=== PATIENT | female | born 1990 | race Caucasian/White ===

== ENCOUNTER 2020-08-17 12:30 | Emergency (ER) | payer OTHER, SELFPAY ==
--- NOTE | ~2020-08-17 | CT_ITS ---
EXAMINATION: CT LUMBAR SPINE WITHOUT CONTRAST CLINICAL INFORMATION: Severe lumbosacral spine pain with left leg numbness. Evaluate for disc disease. COMPARISON: None TECHNIQUE: Contiguous axial CT images of the lumbar spine were obtained without contrast. Sagittal and coronal reformats were provided and reviewed. This CT examination was performed using dose optimization techniques as appropriate, variously including the following: *Automated exposure control *Adjustment of mA and/or kV according to patient size (this includes techniques or standardized protocols for targeted exams where dose is matched to indication/reason for exam; i.e. extremities or head) *Use of iterative reconstruction technique DLP; 393 mGy-cm. FINDINGS: Normal vertebral body alignment. The lumbar lordosis is maintained. No acute fracture or subluxation. No loss of vertebral body height. Minimal loss of intervertebral disc height with tiny endplate osteophytes at L5-S1. No lytic or blastic osseous lesion. No abnormal soft tissue mass or fluid collection. The visualized paraspinal soft tissues are unremarkable. Spinal levels: Evaluation of disc bulges and stenosis is somewhat limited on CT examination. T12-L1: No significant disc bulge. No central canal or neural foraminal stenosis. L1-L2: No significant disc bulge. No central canal or neural foraminal stenosis. L2-L3: No significant disc bulge. No central canal or neural foraminal stenosis. L3-L4: No significant disc bulge. No central canal or neural foraminal stenosis. L4-L5: Mild broad-based disc bulge, slightly asymmetric to the left with thickening of the ligamentum flavum causing mild central canal as well as mild bilateral neural foraminal stenosis. L5-S1: Broad-based disc bulge with a superimposed left paracentral disc protrusion, which measures up to 1.6 cm in ML dimension and likely contacts the traversing left S1 nerve root within the lateral recess. Mild right and [id number] left neural foraminal stenosis. CT/CT lumbar spine wo con IMPRESSION: 1. Minimal degenerative disc disease at L5-S1 with a broad-based disc bulge and superimposed left paracentral disc protrusion, which likely contacts the traversing left S1 nerve root within the lateral recess. Mild right and [id number] left neural foraminal stenosis. 2. L4-L5 mild broad-based disc bulge, slightly asymmetric to the left with thickening of ligamentum flavum causing mild central canal as well as mild bilateral neural foraminal stenosis.
[2020-08-17 13:35] VITALS: BP 112/53; PULSE 74; RESP 14; TEMP 36.7; O2SAT 99; BMI 26.6
--- NOTE | 2020-08-17 14:04 | ED.GENADULT ---
HPI - General Adult General Chief complaint: Back Pain/Injury Stated complaint: back pain Time Seen by Provider: 08/17/20 13:38 Source: patient Mode of arrival: ambulatory Limitations: no limitations History of Present Illness HPI narrative: 30-year-old female who presents emergency department for evaluation of severe lower back pain x3 days. The patient states that she has a history of chronic back pain and has constant pain for at least 1 year. She states the pain is located in her lumbar sacral area, along her vertebrae. She states that the pain is a constant, aching pain which is worse with movement . She states that over the past 3 days, the pain has become more severe and she has also developed a sharp, spasm like pain. She does have pain that radiates down her left leg to her foot with numbness in her left thigh. The left thigh numbness is old. The patient states that the pain is moderate to severe in intensity. She has taken Tylenol and ibuprofen with no relief of her pain. The patient states that she is in recovery for 5 years and takes Suboxone and does not want any narcotic medications. She denied fever, chills, weakness, loss of bowel or bladder control. Related Data Previous Rx's Medication Instructions Recorded methocarbamol 500 mg PO QID PRN 7 Days #28 tab 08/17/20 prednisone 60 mg PO DAILY 7 Days #21 tab 08/17/20 Allergies Allergy/AdvReac Type Severity Reaction Status Date / Time No Known Allergies Allergy Verified 08/17/20 13:34 Review of Systems Review of Systems: Yes all other systems are reviewed and are negative Neurologic: Reports Abnormal speech present [facility] Past Medical History [facility] Narrative: The patient has no chronic medical conditions, she uses a tobacco vape daily. She rarely drinks alcohol, she states that she smokes marijuana for medical reasons, daily. She denies other drug use and states that she is in recovery and takes Suboxone daily. Medical History (Updated 08/17/20 @ 16:13 by Kareem Reaves MD) Asthma Social History Social History Smoking Status: Current every day smoker Smoked in Last 30 Days: Yes Use of substances other than those prescribed or required for medical reasons: No Any prior treatment program specific to substance use: Yes (suboxone) Advance Directives: No Advance Directives Information Provided: Yes Physical Exam Vital Signs: Vital Signs: Last Vital Signs Temp 98.0 F 08/17/20 13:35 Pulse 74 08/17/20 13:35 Resp 14 08/17/20 13:35 BP 112/53 L 08/17/20 13:35 Pulse Ox 99 08/17/20 13:35 Body Mass Index 26.6 Const: General: cooperative, healthy appearing, in distress moderate (Secondary to back pain) and other Orientation/consciousness: oriented to person and oriented to place Limitations: no limitations HENMT: Head: Yes normal to inspection, Yes normocephalic and Yes atraumatic Ears: external ears normal General nose exam: Normal external nose present Face and sinus: Yes normal facial exam Mouth: Normal oral and palatal mucosa present Throat: Yes posterior oropharynx normal Eyes: Periorbital: periorbital findings normal Eyelids: Yes eyelids normal Conjunctivae: conjunctivae normal Sclerae: sclerae normal Corneas: corneas normal Pupils: Equal, round and reactive pupils present Direct Ophthalmoscopy: normal light reflex Neck: Neck: Yes full ROM, Yes no lymphadenopathy, Yes no meningeal signs, Yes trachea midline and Yes supple Chest: Chest palpation & inspection: normal inspection of the chest and normal palpation of entire chest wall Resp: Effort & Inspection: normal respiratory effort and able to speak in complete sentences Auscultation: clear to auscultation bilaterally Cardio: Rate: regular rate Rhythm: regular rhythm Heart sounds: S1 normal heart sound present, S2 normal heart sound present and no murmurs GI: Inspection: Yes normal to inspection Palpation (GI): Soft to palpation, nontender, no guarding, not rigid and No hepatosplenomegaly present : General: Yes no CVA tenderness Back/Spine/Pelvis: Back: no CVA tenderness Cervical Spine: normal cervical lordosis Thoracic/Lumbar Spine: thoracic and lumbar spine normal to inspection, No paraspinal muscle tenderness and lumbar spinal tenderness (From L1-S1, moderate tenderness) Skin: Lesions: no lesions Rashes: no rashes Wounds: no wounds Neuro: General: oriented to person, oriented to place and no meningeal signs Cranial nerves: Yes CN's II-XII intact bilaterally and Yes Equal, round and reactive pupils present Cognition (Neuro): normal cognition Speech: Abnormal speech present Motor exam (neuro): 5/5 motor strength present throughout Sensory Exam: other (Diminished light touch to left thigh compared to right) Extrem: General: Yes normal to inspection and Yes full ROM Psych: Appearance: well kempt Mental Status: mental status grossly normal Speech and movement: Normal speech and movement present Affect: normal affect Attitude: cooperative Thought process: Normal thought process present Thought content: Normal thought content present Course Course Course Narrative: 30-year-old female with a history of chronic back pain x1 month who presents emergency department with worsening lower back pain for 3 days the point where she is having difficulty walking, she does have pain that radiates down the left leg with left thigh numbness which is old. Examination did reveal significant tenderness with palpation of the lumbar to sacral spine. I am concerned that she has had a significant change in her pain without acute injury therefore I ordered a lumbar spine CT scan to rule out the possibility of disc disease or other causes for her pain. 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 Her pain was treated with Tylenol 975 mg orally. 1601: The patient's CT scan of the lumbar spine did reveal multilevel disc disease and degenerative disease which is consistent with her lower back pain.. Specifically at L5-S1 there is a broad-based disc bulge and superimposed left paracentral disc protrusion with likely contact to the transverse left S1 nerve root and left foraminal stenosis. I did review these findings with the patient. At this time I do not think the patient has a acute surgical need but the patient does require follow-up for further management and treatment. The patient will be started prednisone 60 mg once a day for 7 days and Robaxin 1000 mg 3 times a day as needed for pain and spasm. She was also advised to take Tylenol to avoid NSAIDs. She was advised to contact her PCP for referral to specialized back care.. Medical Decision Making Lab Data Labs: Lab Results 08/17/20 Range/Units 14:21 Urine Test NEGATIVE (NEGATIVE) Discharge Plan Discharge Clinical Impression: Lumbar radiculopathy, Disc disease, degenerative, lumbar or lumbosacral Acute lumbar back pain Qualifiers: Back pain laterality: midline Sciatica presence: without sciatica Qualified Code(s): M54.5 - Low back pain Patient Disposition: Home, Self-Care Instructions: Degenerative Disc Disease (ED) Additional Instructions: The CT scan of your lower back did reveal degenerative disc disease and arthritis of the spine. You do have a bulging disc at L5-S1 which may be impinging on your left S1 nerve root as we discussed. At this time, I do not think that this requires a surgery but you should be referred to specialized back care for re-evaluation and further management. An MRI of your lumbar sacral spine may also be helpful. Back Pain Discharge Instructions: Take prednisone, 3 pills every 6 hours as needed for pain. Take Tyleno(acetaminophen) 500 mg pills, 2 pills every 6 hours as needed for pain. Take Robaxin 500 mg, 2 pill every 8 hours as needed for pain or muscle spasm. This is a prescription medication. This medication will make you sleepy, therefore do not drive or work while taking this medication. Apply ice for 15 minutes to the area that hurts on your back, then apply a heating a pad on low for 15 minutes. Do this 4-6 times a day to help reduce the pain in your back. Continue with normal activities as tolerated since staying in bed and not moving around will make your pain worse. You can also try over the counter lidocaine patches as directed on the box to help with the pain. Please return to the Emergency Department or see your doctor immediately if your symptoms get worse or if you develop any new symptoms that are concerning you. Follow up with your doctor in 2 day. Please read the other printed discharge instructions on back pain. Prescriptions: New prednisone 20 mg tablet 60 mg PO DAILY 7 Days Qty: 21 RF: 0 methocarbamol 500 mg tablet 500 mg PO QID PRN (Reason: Pain and spasm) 7 Days Qty: 28 RF: 0
[2020-08-17] MEDS: Acetaminophen 325 MG TABLET 975 MG PO (14:11)
[2020-08-17 14:30] LABS: UPreg QC Valid YES; Urine Pregnancy NEGATIVE (NEGATIVE)
== END 2020-08-17 16:25 | disposition home or self-care (01) ==
PROVIDERS: Emergency Provider Emergency Medicine Emergency Medical Services; PCP Internal Medicine
DX: M54.17 Radiculopathy, lumbosacral region (principal); M54.5 Low back pain; F17.200 Nicotine dependence, unspecified, uncomplicated; Z71.6 Tobacco abuse counseling; Z79.899 Other long term (current) drug therapy
CPT/HCPCS: 72131; 81025; 99283; 99284

== ENCOUNTER 2021-05-02 15:47 | Emergency (ER) | payer OTHER, SELFPAY ==
[2021-05-02 15:53] VITALS: BP 125/69; PULSE 86; RESP 20; TEMP 36.8; O2SAT 98; BMI 31.8
[2021-05-02 16:52] LABS: Influenza A PCR NEGATIVE (Negative); Influenza B PCR NEGATIVE (Negative); Resp Syncy Virus RNA Qual PCR NEGATIVE (Negative); SARS COV2 PCR INHOUSE POSITIVE (Negative)
== END 2021-05-02 18:46 | disposition left against medical advice (07) ==
PROVIDERS: Emergency Provider Internal Medicine
DX: O26.93 Pregnancy related conditions, unspecified, third trimester (principal); R50.9 Fever, unspecified; Z3A.39 39 weeks gestation of pregnancy; Z20.822 Contact with and (suspected) exposure to COVID-19
CPT/HCPCS: 0241U; 36415; 99282; 99283

== ENCOUNTER 2023-04-28 19:23 | Emergency (ER) | payer OTHER, SELFPAY ==
--- NOTE | ~2023-04-28 | XR_ITS ---
EXAMINATION: XR CHEST CLINICAL INFORMATION: Cough. COMPARISON: None available. TECHNIQUE: 2 views of the chest were obtained. FINDINGS: Normal appearance of the cardiomediastinal silhouette. Mild central bronchial wall thickening and minimal diffuse interstitial prominence. No focal infiltrate. No pleural effusion or pneumothorax. No acute osseous abnormalities. Visualized upper abdomen is within normal limits. XR/XR chest 2V IMPRESSION: Thickening suggesting reactive airways disease or atypical/viral infection.
--- NOTE | 2023-04-28 19:26 | ED.GENADULT ---
HPI - General Adult General Chief complaint: Upper Respiratory Symptoms Stated complaint: cough,wheezing,sob Time Seen by Provider: 04/28/23 20:42 Source: patient Mode of arrival: ambulatory Limitations: no limitations History of Present Illness HPI narrative: Patient history of asthma not using her inhaler for some time a UTI age 2 weeks ago to the Bactrim for 1 week comes here for cough which is going on for more than 2 weeks with mucopurulent expectoration no fever no chills no urinary symptoms at this time no significant shortness of breath no other family member sick Related Data Previous Rx's Medication Instructions Recorded methocarbamol 500 mg tablet 500 mg PO QID PRN Pain and spasm 7 08/17/20 days #28 tabs prednisone 20 mg tablet 60 mg (3 x 20 mg) PO DAILY 7 days 08/17/20 #21 tabs albuterol sulfate 90 mcg/actuation 2 puff inhalation Q4-6H PRN 04/28/23 aerosol inhaler (ProAir HFA) shortness of breath or wheezing #8.5 grams benzonatate 200 mg capsule 200 mg PO TID PRN cough #30 caps 04/28/23 cefuroxime axetil 500 mg tablet 500 mg PO BID 7 days #14 tabs 04/28/23 prednisone 20 mg tablet 40 mg (2 x 20 mg) PO DAILY #10 tabs 04/28/23 Allergies Allergy/AdvReac Type Severity Reaction Status Date / Time No Known Allergies Allergy Verified 04/28/23 19:26 Review of Systems Review of Systems: Yes all other systems are reviewed and are negative PMFSH Past Medical History Medical History Asthma Social History Social History Smoked in Last 30 Days: Yes Use of substances other than those prescribed or required for medical reasons: No Advance Directives: No Advance Directives Information Provided: No Patient : No Physical Exam ED Vital Signs: Vital Signs - 24 hr 04/28/23 19:27 04/28/23 22:11 04/28/23 22:11 Temperature 98.3 F 97.8 F Pulse Rate 90 66 Respiratory Rate 18 14 Blood Pressure 122/73 120/77 Pulse Oximetry 95 97 98 Oxygen Delivery Method Room Air Room Air Room Air BMI result Body Mass Index 36.5 Appearance: Alert. Oriented X3. No acute distress. ENT: Pharynx normal. Oral Mucosa moist Neck: Normal inspection. Neck supple. CVS: Normal heart rate and rhythm. Pulses normal. Respiratory: No respiratory distress. Equal air entry bilateral, prolonged expiration no cracks Abdomen: Soft and nontender. Bowel sounds are present, Skin: Skin warm and dry. Normal skin color. Normal skin turgor. Neuro: Oriented X 3. Course Course Course Narrative: RME- 32 year old female presents for evaluation of cough, congestion. Symptoms started 3 days ago. Plan for viral swabs. x-ray Medications Administered Discontinued Medications Generic Name Dose Route Start Last Admin Trade Name Freq PRN Reason Stop Dose Admin Albuterol Sulfate 2 puff 04/28/23 20:48 04/28/23 21:06 Albuterol Sulfate 90 Mcg 8 Gm Inhaler INHALE 04/28/23 20:49 2 puff ONCE ONE Administration Benzonatate 200 mg 04/28/23 20:48 04/28/23 21:06 Benzonatate 100 Mg Capsule PO 04/28/23 20:49 200 mg ONCE ONE Administration Prednisone 60 mg 04/28/23 20:48 04/28/23 21:06 Prednisone 20 Mg Tablet PO 04/28/23 20:49 60 mg ONCE ONE Administration Medical Decision Making Medical Decision Making [facility] Narrative: Patient with bronchitis with history of asthma discharge patient home on Ceftin prednisone and inhaler Differential Diagnosis Differential Diagnoses: The differential diagnosis associated with the presentation includes Bronchitis/asthma/COVID/influenza/pneumonia Lab Data [facility] Lab Attestation statement: I reviewed the patient's lab results. Labs: Lab Results 04/28/23 Range/Units 19:39 Urine Color Yellow Urine Appearance Clear Urine pH 7.0 (5.0-9.0) Ur Specific [place] 1.015 (1.005-1.025) Urine Protein Negative (Neg-Trace) mg/dL Urine Glucose (UA) Negative (Negative) mg/dL Urine Ketones Negative (Negative) mg/dL Urine Blood Negative (Negative) Urine Nitrite Negative (Negative) Ur Leukocyte Esterase Negative (Negative) Urine RBC 0-2 (0-2) /HPF Urine WBC 0-5 (0-5) /HPF Ur Squamous Epith Cells 0-2 (0-2) /HPF Urine Bacteria None Seen (None Seen) Hyaline Casts 0-2 (0-2) /LPF Urine Test NEGATIVE (NEGATIVE) COVID-19 ([place]) Negative (Negative) COVID-19 Clin Com See Note Influenza Type A ([facility]) Negative (Negative) Influenza Type B ([facility]) Negative (Negative) Influenza A & B Note See Note Radiology Impression Discussion of test interpretation with radiology: I have reviewed the radiologist's reading. Discharge Plan Discharge Clinical Impression: Acute bronchitis Patient Disposition: Home, Self-Care Instructions: Acute Bronchitis (ED) Additional Instructions: Use inhaler and prednisone as prescribed Antibiotic as prescribed Cough drops as prescribed Follow with PCP if not better Prescriptions: New benzonatate 200 mg capsule 200 mg PO TID PRN (Reason: cough) Qty: 30 0RF prednisone 20 mg tablet 40 mg PO DAILY Qty: 10 0RF cefuroxime axetil 500 mg tablet 500 mg PO BID 7 Days Qty: 14 0RF albuterol sulfate [ProAir HFA] 90 mcg/actuation HFA aerosol inhaler 2 puff inhalation Q4-6H PRN (Reason: shortness of breath or wheezing) Qty: 8.5 0RF No Action prednisone 20 mg tablet 60 mg PO DAILY 7 Days Qty: 21 0RF methocarbamol 500 mg tablet 500 mg PO QID PRN (Reason: Pain and spasm) 7 Days Qty: 28 0RF Interventions: ED Discharge Assessment Last Done: 04/28/23 22:13 Discharge Date/Time: 04/28/23 22:13
[2023-04-28 19:27] VITALS: BP 122/73; PULSE 90; RESP 18; TEMP 36.8; O2SAT 95; BMI 36.5
[2023-04-28 19:48] LABS: Appearance Urine Clear; Color Urine Yellow; Glucose Urine UA Negative (Negative); Leukocyte Esterase Urine Negative (Negative); Nitrite Urine Negative (Negative); Specific Gravity - Urine 1.015 (1.005-1.025); Urine Blood Negative (Negative); Urine Ketones Negative (Negative); Urine Protein Negative (Neg-Trace)
[2023-04-28 19:51] LABS: Bacteria Urine None Seen (None Seen); Hyaline Casts Urine 0-2 /LPF (0-2); RBC Urine 0-2 /HPF (0-2); Squamous Epithelial Cell Urine 0-2 /HPF (0-2); WBC Urine 0-5 /HPF (0-5)
[2023-04-28 20:05] LABS: COVID-19 Test Negative (Negative); IDNOW Serial# 08D9AD1C; IDNOW Serial# BCCEAD1C; Influenza A Negative (Negative); Influenza B2 Negative (Negative)
[2023-04-28 21:03] LABS: UPreg QC Valid YES; Urine Pregnancy NEGATIVE (NEGATIVE)
[2023-04-28] MEDS: Albuterol Sulfate 90 MCG 8 GM INHALER 2 PUFF INHALE (21:06)
[2023-04-28] MEDS: predniSONE 20 MG TABLET 60 MG PO (21:06)
[2023-04-28] MEDS: Benzonatate 100 MG CAPSULE 200 MG PO (21:06)
[2023-04-28 22:11] VITALS: BP 120/77; PULSE 66; RESP 14; TEMP 36.6; O2SAT 97; O2SAT 98
== END 2023-04-28 22:13 | disposition home or self-care (01) ==
PROVIDERS: Physician Assistant; Emergency Provider Internal Medicine
DX: J20.9 Acute bronchitis, unspecified (principal); R05.9 Cough, unspecified; R06.02 Shortness of breath; Z11.52 Encounter for screening for COVID-19; Z20.822 Contact with and (suspected) exposure to COVID-19; Z79.899 Other long term (current) drug therapy
CPT/HCPCS: 71046; 81001; 81025; 87502; 87635; 99284

== ENCOUNTER 2023-05-17 21:04 | Emergency (ER) | payer OTHER, SELFPAY ==
[2023-05-17 21:10] VITALS: BP 145/65; PULSE 124; RESP 18; TEMP 36.2; O2SAT 96; BMI 36.3
[2023-05-17 21:52] LABS: MANUAL DIFF FLAG NO
[2023-05-17 21:54] LABS: Basophils Absolute Auto 0.1 X10*3/uL (0.0-0.2); Basophils Percent Auto 0.7 % (0-2); Eosinophils Absolute Auto 0.6 X10*3/uL (0.0-0.4); Eosinophils Percent Auto 5.7 % (0-4); Hematocrit 39.4 % (37.0-47.0); Hemoglobin 13.2 g/dl (12.0-16.0); Imm Gran Abs Auto 0.04 X10*3/uL (0.00-0.03); Imm Gran Pct Auto 0.4 % (0.0-0.4); Lymphocytes Absolute Auto 2.1 X10*3/uL (1.2-4.9); Lymphocytes Percent Auto 19.1 % (20-40); Mean Corpuscular HGB Conc 33.5 g/dl (31.0-35.0); Mean Corpuscular Hemoglobin 26.2 pg (27.0-33.0); Mean Corpuscular Volume 78.2 fL (80.0-98.0); Mean Platelet Volume 10.5 fL (9.4-12.3); Monocytes Absolute Auto 0.7 X10*3/uL (0.1-1.2); Monocytes Percent Auto 5.9 % (2-11); Neutrophils Absolute Auto 7.7 x10*3/uL (2.0-8.3); Neutrophils Percent Auto 68.2 % (45-73); Platelet Count 286 X10*3/uL (160-400); Red Blood Count 5.04 X10*6/uL (4.20-5.50); Red Cell Distribution Width 12.6 % (11.0-16.0); White Blood Count 11.2 X10*3/uL (4.8-10.8)
[2023-05-17 22:09] LABS: Alanine Aminotransferase 12 U/L (0-31); Albumin Level 4.1 g/dL (3.5-5.0); Alkaline Phosphatase 64 U/L (39-117); Anion Gap 15 (12-20); Aspartate Amino Transferase 17 U/L (5-31); Bilirubin Total 0.6 mg/dL (0.0-1.0); Blood Urea Nitrogen 10 mg/dL (9-16); Calcium 9.4 mg/dL (8.4-10.2); Carbon Dioxide 16 mmol/L (22-29); Chloride 110 mmol/L (96-108); Creatinine Clr Calc Pharmacy 151.3; Estimated Glomerular Filt Rate > 60; Glucose Random 95 mg/dL (60-115); Potassium 4.2 mmol/L (3.3-5.1); Sodium 137 mmol/L (135-145); Total Protein 7.5 g/dL (6.5-8.0)
[2023-05-17 22:30] LABS: Influenza A PCR NEGATIVE (Negative); Influenza B PCR NEGATIVE (Negative); Resp Syncy Virus RNA Qual PCR NEGATIVE (Negative); SARS COV2 PCR INHOUSE NEGATIVE (Negative)
--- NOTE | 2023-05-17 23:37 | ED_ITS ---
HPI - SOB/Dyspnea General Chief Complaint: Dyspnea Stated Complaint: Sob Time Seen by Provider: 05/17/23 23:37 Source: patient Mode of arrival: ambulatory Limitations: no limitations History of Present Illness HPI Narrative: Patient history of asthma with recurrent episodes of bronchitis, has cats at home was seen here on 04/28 for same treated with prednisone and antibiotics comes here as she is wheezing and coughing again no fever cough with mucoid expectoration Related Data Previous Rx's Medication Instructions Recorded methocarbamol 500 mg tablet 500 mg PO QID PRN Pain and spasm 7 08/17/20 days #28 tabs prednisone 20 mg tablet 60 mg (3 x 20 mg) PO DAILY 7 days 08/17/20 #21 tabs albuterol sulfate 90 mcg/actuation 2 puff inhalation Q4-6H PRN 04/28/23 aerosol inhaler (ProAir HFA) shortness of breath or wheezing #8.5 grams benzonatate 200 mg capsule 200 mg PO TID PRN cough #30 caps 04/28/23 cefuroxime axetil 500 mg tablet 500 mg PO BID 7 days #14 tabs 04/28/23 prednisone 20 mg tablet 40 mg (2 x 20 mg) PO DAILY #10 tabs 04/28/23 albuterol sulfate 2.5 mg/3 mL 2.5 mg (3 mL) inhalation Q4-6H PRN 05/18/23 (0.083 %) solution for nebulization shortness of breath or wheezing #90 mL montelukast 10 mg tablet 10 mg PO BEDTIME #30 tabs 05/18/23 (Singulair) nebulizers #1 ea 05/18/23 prednisone 20 mg tablet 40 mg (2 x 20 mg) PO DAILY #10 tabs 05/18/23 Allergies Allergy/AdvReac Type Severity Reaction Status Date / Time No Known Allergies Allergy Verified 04/28/23 19:26 Review of Systems 2 Review of Systems: Yes all other systems are reviewed and are negative PMFSH Past Medical History Medical History (Updated 05/18/23 @ 02:57 by Jai Liriano MD) Asthma Social History Social History Advance Directives: No Advance Directives Information Provided: No Physical Exam 2 Vital Signs: Vital Signs: Last Vital Signs Temp 97.2 F 05/17/23 21:10 Pulse 95 05/18/23 01:48 Resp 18 05/18/23 01:48 BP 112/60 05/18/23 00:56 Pulse Ox 94 05/18/23 00:56 O2 Del Method Room Air 05/18/23 00:56 BMI result Body Mass Index 36.3 Appearance: Alert. Oriented X3. No acute distress. Eyes: No pallor ENT: Pharynx normal. Oral Mucosa moist Neck: Normal inspection. Neck supple. CVS: Normal heart rate and rhythm. Pulses normal. Respiratory: No respiratory distress. Equal air entry bilateral, bilateral wheezing no crackle Abdomen: Soft and nontender. Bowel sounds are present, no mass palpable, no CVA tenderness Skin: Skin warm and dry. Normal skin color. Normal skin turgor. Extremities: No lower extremity edema. No calf tenderness Neuro: Oriented X 3. Medications Administered Discontinued Medications Generic Name Dose Route Start Last Admin Trade Name Freq PRN Reason Stop Dose Admin Albuterol Sulfate 5 mg/ 7.5 mg 05/18/23 01:09 05/18/23 01:14 Albuterol Sulfate 2.5 mg INHALE 05/18/23 01:10 7.5 mg ONCE ONE Administration Albuterol Sulfate 5 mg/ 0 mg 05/18/23 01:41 05/18/23 01:47 Albuterol/Ipratropium 3 ml INHALE 05/18/23 01:42 7.5 each ONCE ONE Administration Sodium Chloride 1,000 mls @ 999 mls/hr 05/17/23 23:53 05/18/23 00:45 Ns IV 05/18/23 00:53 999 mls/hr .Q1H1M ONE Administration Magnesium Sulfate 2 gm in 50 mls @ 150 mls/hr 05/17/23 23:53 05/18/23 00:45 Magnesium Sulfate/H2o IV 05/18/23 00:12 150 mls/hr ONCE ONE Administration Methylprednisolone Sodium Succinate 125 mg 05/17/23 23:53 05/18/23 00:45 Methylprednisolone Sod Succ 125 Mg/2 Ml Vial IVPUSH 05/17/23 23:54 125 mg ONCE ONE Administration Medical Decision Making Medical Decision Making MDM Narrative: Patient with severe asthma alert she is likely to Cat and seasonal allergies advised not to have a CT and follow-up with stitcher hand to do the further testing discharge patient home on nebulizer and Singulair along with prednisone patient received 2 continuous treatment feeling much better now saturating 96% on room air Differential Diagnosis Differential Diagnoses: The differential diagnosis associated with the presentation includes Asthma exacerbation Admission/Observation Consideration of admission/observation: Escalation of care including admission/observation considered Lab Data [facility] Lab Attestation statement: I reviewed the patient's lab results. 05/17/23 21:49 05/17/23 21:49 Labs: Lab Results 05/17/23 Range/Units 21:49 WBC 11.2 H (4.8-10.8) X10*3/uL RBC 5.04 (4.20-5.50) X10*6/uL Hgb 13.2 (12.0-16.0) g/dl Hct 39.4 (37.0-47.0) % MCV 78.2 L (80.0-98.0) fL MCH 26.2 L (27.0-33.0) pg MCHC 33.5 (31.0-35.0) g/dl RDW 12.6 (11.0-16.0) % Plt Count 286 (160-400) X10*3/uL MPV 10.5 (9.4-12.3) fL Immature Gran % (Auto) 0.4 (0.0-0.4) % Neut % (Auto) 68.2 (45-73) % Lymph % (Auto) 19.1 L (20-40) % [place] % (Auto) 5.9 (2-11) % Eos % (Auto) 5.7 H (0-4) % Baso % (Auto) 0.7 (0-2) % Lymph # (Auto) 2.1 (1.2-4.9) X10*3/uL [place] # (Auto) 0.7 (0.1-1.2) X10*3/uL Eos # (Auto) 0.6 H (0.0-0.4) X10*3/uL Baso # (Auto) 0.1 (0.0-0.2) X10*3/uL Abs Immat Gran (auto) 0.04 H (0.00-0.03) X10*3/uL Absolute Neuts (auto) 7.7 (2.0-8.3) x10*3/uL Absolute Nucleated RBC 0.000 (0.0-0.012) X10*3/uL Nucleated RBC % (auto) 0.0 (0.0-0.2) /100WBC Sodium 137 (135-145) mmol/L Potassium 4.2 (3.3-5.1) mmol/L Chloride 110 H (96-108) mmol/L Carbon Dioxide 16 L (22-29) mmol/L Anion Gap 15 (12-20) BUN 10 (9-16) mg/dL Creatinine 0.66 (0.5-1.4) mg/dL Estim Creat Clear Calc 151.3 Estimated GFR > 60 Random Glucose 95 (60-115) mg/dL Calcium 9.4 (8.4-10.2) mg/dL Total Bilirubin 0.6 (0.0-1.0) mg/dL AST 17 (5-31) U/L ALT 12 (0-31) U/L Alkaline Phosphatase 64 (39-117) U/L Total Protein 7.5 (6.5-8.0) g/dL Albumin 4.1 (3.5-5.0) g/dL Influenza Type A (PCR) NEGATIVE (Negative) Influenza Type B (PCR) NEGATIVE (Negative) RSV RNA Qual (PCR) NEGATIVE (Negative) SARS-CoV-2 RNA (RT-PCR) NEGATIVE (Negative) Discharge Plan Discharge Clinical Impression: Asthma with exacerbation Patient Disposition: Home, Self-Care Instructions: Asthma (ED) Additional Instructions: Use albuterol inhaler/nebulizing treatment every 4-6 hours as needed Prednisone as prescribed Singulair 1 tablet daily Follow with lung specialist Prescriptions: New albuterol sulfate 2.5 mg /3 mL (0.083 %) solution for nebulization 2.5 mg inhalation Q4-6H PRN (Reason: shortness of breath or wheezing) Qty: 90 0RF (DME) nebulizers Misc See Rx Instructions .Route Qty: 1 0RF Rx Instructions: As directed prednisone 20 mg tablet 40 mg PO DAILY Qty: 10 0RF montelukast [Singulair] 10 mg tablet 10 mg PO BEDTIME Qty: 30 0RF No Action prednisone 20 mg tablet 60 mg PO DAILY 7 Days Qty: 21 0RF methocarbamol 500 mg tablet 500 mg PO QID PRN (Reason: Pain and spasm) 7 Days Qty: 28 0RF benzonatate 200 mg capsule 200 mg PO TID PRN (Reason: cough) Qty: 30 0RF prednisone 20 mg tablet 40 mg PO DAILY Qty: 10 0RF cefuroxime axetil 500 mg tablet 500 mg PO BID 7 Days Qty: 14 0RF albuterol sulfate [ProAir HFA] 90 mcg/actuation HFA aerosol inhaler 2 puff inhalation Q4-6H PRN (Reason: shortness of breath or wheezing) Qty: 8.5 0RF Referrals: Chidi Mccord MD [Physician] - 1 week Stand Alone Forms: Work/School Release
[2023-05-18] MEDS: methylPREDNISolone Sod Succ 125 MG/2 ML VIAL IVPUSH (00:45)
[2023-05-18] MEDS: 0.9 % Sodium Chloride 1,000 ML 999 ML IV (00:45)
[2023-05-18] MEDS: Magnesium Sulfate/H2O 2 GM/50 ML PIGGYBACK IV (00:45)
[2023-05-18 00:56] VITALS: BP 112/60; PULSE 95; RESP 19; O2SAT 94
[2023-05-18] MEDS: Albuterol Sulfate 5 MG, Albuterol Sulfate (0.083%) 2.5 MG 7.5 MG INHALE (01:14)
[2023-05-18 01:15] VITALS: PULSE 82; RESP 18; O2SAT 98
[2023-05-18] MEDS: Albuterol Sulfate 5 MG, Albuterol/Iprat 2.5/0.5MG 3 ML 3 ML INHALE (01:47)
[2023-05-18 01:48] VITALS: PULSE 95; RESP 18; O2SAT 97
--- NOTE | 2023-05-18 03:41 | PC.NURSE ---
PT arrived from waiting room with complaints of SOB. PT was recently seen in ED and treated for diagnosed with bronchitis. PT completed full course of antibiotics, and states she has been feeling worse.VSS, pt oxygen saturation at 97%, audible wheezing, pt in no acute distress at this time. Labs drawn, IV access via ultrasound guidance placed in left forearm. Medications administer as per SEP. Plan of care ongoing
== END 2023-05-18 03:48 | disposition home or self-care (01) ==
PROVIDERS: Emergency Provider Internal Medicine
DX: J45.901 Unspecified asthma with (acute) exacerbation (principal); Z20.822 Contact with and (suspected) exposure to COVID-19; Z20.828 Contact with and (suspected) exposure to other viral communicable diseases
CPT/HCPCS: 0241U; 80053; 85025; 94640; 96374; 96375; 99284; J2930; J3475

== ENCOUNTER 2023-06-09 10:32 | Observation (INO) | payer OTHER, SELFPAY ==
[2023-06-09] VITALS (9 sets, daily range): BP systolic 113–135; BP diastolic 66–89; PULSE 89–110; RESP 14–20; TEMP 36.1–37.3; O2SAT 94–99; BMI 34.5; BMI 34.4
--- NOTE | ~2023-06-09 | XR_ITS ---
EXAMINATION: XR CHEST CLINICAL INFORMATION: Difficulty breathing. COMPARISON: 04/28/2023 TECHNIQUE: 2 views of the chest were obtained. FINDINGS: The lungs are well expanded. No focal consolidation. Mild central bronchial wall thickening. No pleural effusion. Cardiac silhouette is within normal limits. XR/XR chest 2V IMPRESSION: Mild central bronchial wall thickening possibly representing bronchitis. This is best demonstrated on the lateral projection. Advise clinical correlation.
[2023-06-09] MEDS: Albuterol Sulfate 2.5 MG, Albuterol Sulfate (0.083%) 2.5 MG 5 MG INHALE ×2 (11:16→12:04)
--- NOTE | 2023-06-09 11:28 | ED_ITS ---
HPI - SOB/Dyspnea General Chief Complaint: Dyspnea Stated Complaint: Difficulty breathing Time Seen by Provider: 06/09/23 10:51 Source: patient, RN notes reviewed and old records reviewed Mode of arrival: ambulatory History of Present Illness HPI Narrative: 32-year-old female with a past medical history of asthma presenting to the ED complaining of cough, SOB, chest tightness x 2 days. Patient admits she has been seen and treated in our ED on 04/28 and 04/16 for similar symptoms, finished courses of prednisone and albuterol with brief relief. Denies fever, chills, recent travel, sick contacts, pedal edema/calf tenderness. Related Data Previous Rx's Medication Instructions Recorded methocarbamol 500 mg tablet 500 mg PO QID PRN Pain and spasm 7 08/17/20 days #28 tabs prednisone 20 mg tablet 60 mg (3 x 20 mg) PO DAILY 7 days 08/17/20 #21 tabs albuterol sulfate 90 mcg/actuation 2 puff inhalation Q4-6H PRN 04/28/23 aerosol inhaler (ProAir HFA) shortness of breath or wheezing #8.5 grams benzonatate 200 mg capsule 200 mg PO TID PRN cough #30 caps 04/28/23 cefuroxime axetil 500 mg tablet 500 mg PO BID 7 days #14 tabs 04/28/23 prednisone 20 mg tablet 40 mg (2 x 20 mg) PO DAILY #10 tabs 04/28/23 albuterol sulfate 2.5 mg/3 mL 2.5 mg (3 mL) inhalation Q4-6H PRN 05/18/23 (0.083 %) solution for nebulization shortness of breath or wheezing #90 mL montelukast 10 mg tablet 10 mg PO BEDTIME #30 tabs 05/18/23 (Singulair) nebulizers #1 ea 05/18/23 prednisone 20 mg tablet 40 mg (2 x 20 mg) PO DAILY #10 tabs 05/18/23 Allergies Allergy/AdvReac Type Severity Reaction Status Date / Time No Known Allergies Allergy Verified 04/28/23 19:26 Review of Systems 2 Review of Systems: Constitutional: No Fever, No Chills ENT/Mouth: No Ear Pain, No Nasal Congestion, No sore throat, No Rhinorrhea, No Swallowing Difficulty Cardiovascular: + Chest tightness, + SOB Respiratory: + Cough, No Sputum, + Wheezing Gastrointestinal: No Nausea, No Vomiting, No Abdominal pain Genitourinary: No Dysuria, No Urinary Frequency, No Hematuria,No Flank Pain Musculoskeletal: No joint pain, No Myalgias, No Joint Swelling Skin: No Skin Lesions, No rash Neuro: No Weakness Yes all other systems are reviewed and are negative Constitutional: Constitutional: Reports as per [facility] Past Medical History Attestation statement: The following information was validated with the patient. Source: old records reviewed Medical History Asthma Social History Social History Smoked in Last 30 Days: Yes Use of substances other than those prescribed or required for medical reasons: No Substance Use Type: Former Substance User Advance Directives: No Physical Exam 2 Vital Signs: Vital Signs: Last Vital Signs Temp 97 F 06/09/23 10:40 Pulse 89 06/09/23 13:31 Resp 18 06/09/23 13:31 BP 113/89 06/09/23 10:40 Pulse Ox 97 06/09/23 10:40 O2 Del Method Room Air 06/09/23 10:40 BMI result Body Mass Index 34.5 Const: General: cooperative, healthy appearing and no acute distress O rientation/consciousness: patient oriented x3 Limitations: no limitations HEENT: Head: Yes normal to inspection and Yes atraumatic Ears: hearing grossly normal bilaterally General nose exam: Normal external nose present Face and sinus: Yes normal facial exam Eyes: General: appearance normal, both eyes and all related structures EOM: EOMs intact bilaterally Neck: Neck: Yes normal visual inspection and Yes no meningeal signs Resp: Effort & Inspection: normal respiratory effort and no respiratory distress Auscultation: wheezes expiratory wheezes and throughout Cardio: Rate: tachycardic Heart sounds: S1 normal heart sound present and S2 normal heart sound present Skin: Rashes: no rashes Wounds: no wounds Neuro: General: patient oriented x3, tone normal and no meningeal signs C ranial nerves: Yes CN's II-XII intact bilaterally Gait exam (Neuro): Normal gait present Extrem: General: Yes normal to inspection, Yes no pedal edema and Yes no calf tenderness Course Course Course Narrative: -unable to obtain IV access on patient >will give Solumedrol 60mg IM 1146--XR chest 2V IMPRESSION: Mild central bronchial wall thickening possibly representing bronchitis. This is best demonstrated on the lateral projection. Advise clinical correlation. -COVID/flu/RSV negative -1244--on re-evaluation patient is still with diffuse expiratory wheeze. Additional DuoNeb ordered. Will need IV magnesium -1500--on re-evaluation patient is still with diffuse expiratory wheeze. Plan for admission. Medications Administered Discontinued Medications Generic Name Dose Route Start Last Admin Trade Name Freq PRN Reason Stop Dose Admin Albuterol Sulfate 2.5 mg/ 5 mg 06/09/23 11:15 06/09/23 11:16 Albuterol Sulfate 2.5 mg INHALE 06/09/23 11:16 5 mg ONCE ONE Administration Albuterol Sulfate 2.5 mg/ 5 mg 06/09/23 12:01 06/09/23 12:04 Albuterol Sulfate 2.5 mg INHALE 06/09/23 12:02 5 mg ONCE ONE Administration Albuterol Sulfate 5 mg 06/09/23 12:42 06/09/23 13:31 Albuterol Sulfate 2.5 Mg/0.5 Ml Vial.Neb INHALE 06/09/23 12:43 5 mg ONCE ONE Administration Magnesium Sulfate 2 gm in 50 mls @ 25 mls/hr 06/09/23 12:45 06/09/23 15:35 Magnesium Sulfate/H2o IV 06/09/23 14:44 Infused ONCE ONE Infusion Methylprednisolone Sodium Succinate 60 mg 06/09/23 11:30 06/09/23 11:35 Methylprednisolone Sod Succ 125 Mg/2 Ml Vial IM 06/09/23 11:31 60 mg ONCE ONE Administration Medical Decision Making Medical Decision Making MDM Narrative: 32-year-old female with a past medical history of asthma presenting to the ED complaining of cough, SOB, chest tightness x 2 days. On exam tachycardic likely from albuterol use [employer]. Talking in short sentences, diffuse expiratory wheeze noted. No pitting edema or calf tenderness. Concern for asthma exacerbation vs pneumonia or bronchitis. Lower suspicion for ACS/PE or DVT. Plan: EKG, labs, CXR, viral testing, DuoNeb, Solu-Medrol, re-evaluate Please refer to course for remaining clinical decision making, interpretation of labs/imaging results, and discussions with consultants and/or family members. Differential Diagnosis Differential Diagnoses: The differential diagnosis associated with the presentation includes As above Admission/Observation Consideration of admission/observation: Escalation of care including admission/observation considered Consult Healthcare Provider Management of the patient was discussed with: Hospitalist Lab Data MDM Lab Attestation statement: I reviewed the patient's lab results. 06/09/23 11:29 06/09/23 12:31 Labs: Lab Results 06/09/23 06/09/23 Range/Units 11:29 12:31 WBC 8.6 (4.8-10.8) X10*3/uL RBC 5.09 (4.20-5.50) X10*6/uL Hgb 13.5 (12.0-16.0) g/dl Hct 40.4 (37.0-47.0) % MCV 79.4 L (80.0-98.0) fL MCH 26.5 L (27.0-33.0) pg MCHC 33.4 (31.0-35.0) g/dl RDW 12.6 (11.0-16.0) % Plt Count 241 (160-400) X10*3/uL MPV Not Reportable Immature Gran % (Auto) 0.3 (0.0-0.4) % Neut % (Auto) 69.8 (45-73) % Lymph % (Auto) 16.8 L (20-40) % [place] % (Auto) 7.6 (2-11) % Eos % (Auto) 5.0 H (0-4) % Baso % (Auto) 0.5 (0-2) % Lymph # (Auto) 1.4 (1.2-4.9) X10*3/uL [place] # (Auto) 0.7 (0.1-1.2) X10*3/uL Eos # (Auto) 0.4 (0.0-0.4) X10*3/uL Baso # (Auto) 0.0 (0.0-0.2) X10*3/uL Abs Immat Gran (auto) 0.03 (0.00-0.03) X10*3/uL Absolute Neuts (auto) 6.0 (2.0-8.3) x10*3/uL Absolute Nucleated RBC 0.000 (0.0-0.012) X10*3/uL Nucleated RBC % (auto) 0.0 (0.0-0.2) /100WBC Smear Tech's Comments VERIFIED Sodium 140 (135-145) mmol/L Potassium 3.5 (3.3-5.1) mmol/L Chloride 105 (96-108) mmol/L Carbon Dioxide 26 (22-29) mmol/L Anion Gap 13 (12-20) BUN 9 (9-16) mg/dL Creatinine 0.65 (0.5-1.4) mg/dL Estim Creat Clear Calc 149.3 Estimated GFR > 60 Random Glucose 131 H (60-115) mg/dL Calcium 9.5 (8.4-10.2) mg/dL Influenza Type A (PCR) NEGATIVE (Negative) Influenza Type B (PCR) NEGATIVE (Negative) RSV RNA Qual (PCR) NEGATIVE (Negative) SARS-CoV-2 RNA (RT-PCR) NEGATIVE (Negative) Independent Interpretation I performed an independent interpretation of an: EKG Radiology Impression Discussion of test interpretation with radiology: I have reviewed the radiologist's reading. External Record Review External record reviewed: Inpatient record, Office record, Outpatient record, Prior outpatient labs, Prior outpatient radiology, Primary care record and Outside ED record Tests considered The following testing was considered but not selected: As above Chronic Conditions Patient?s care impacted by: Other (Asthma) Critical Care Time Critical Care Time Critical Care Time: Yes Total Critical Care Time: 40 Attestation: I have personally provided critical care time exclusive of time spent on separately billable procedures. Time includes review of lab data, radiology results, discussion with consultants, and monitoring for potential decompensation. Intervention performed as documented. Discharge Plan Discharge Clinical Impression: Asthma with exacerbation, Bronchitis Patient Disposition: Admitted As Inpatient
[2023-06-09] MEDS: methylPREDNISolone Sod Succ 125 MG/2 ML VIAL 60 MG IM (11:35)
--- NOTE | 2023-06-09 11:45 | ECG_ITS ---
Test Reason : sob Blood Pressure : / mmHG Vent. Rate : 105 BPM Atrial Rate : 105 BPM P-R Int : 124 ms QRS Dur : 092 ms QT Int : 344 ms P-R-T Axes : 074 001 045 degrees QTc Int : 454 ms Sinus tachycardia Incomplete right bundle branch block Borderline ECG No previous ECGs available Referred By: Henna Hernandez Electronically Signed By:QUINCY FONG
[2023-06-09 11:49] LABS: Basophils Percent Auto 0.5 % (0-2); Eosinophils Absolute Auto 0.4 X10*3/uL (0.0-0.4); Hematocrit 40.4 % (37.0-47.0); Hemoglobin 13.5 g/dl (12.0-16.0); Imm Gran Abs Auto 0.03 X10*3/uL (0.00-0.03); Imm Gran Pct Auto 0.3 % (0.0-0.4); Lymphocytes Absolute Auto 1.4 X10*3/uL (1.2-4.9); Lymphocytes Percent Auto 16.8 % (20-40); MANUAL DIFF FLAG SCAN; Mean Corpuscular HGB Conc 33.4 g/dl (31.0-35.0); Mean Corpuscular Hemoglobin 26.5 pg (27.0-33.0); Mean Corpuscular Volume 79.4 fL (80.0-98.0); Monocytes Absolute Auto 0.7 X10*3/uL (0.1-1.2); Monocytes Percent Auto 7.6 % (2-11); Neutrophils Percent Auto 69.8 % (45-73); PLT CLUMP 1; Red Blood Count 5.09 X10*6/uL (4.20-5.50); Red Cell Distribution Width 12.6 % (11.0-16.0); SCAN SMEAR FLAG 1
[2023-06-09 12:01] LABS: White Blood Count 8.6 X10*3/uL (4.8-10.8)
[2023-06-09 12:02] LABS: Platelet Count 241 X10*3/uL (160-400); SLIDE REVIEW VERIFIED
[2023-06-09 12:35] LABS: Influenza A PCR NEGATIVE (Negative); Influenza B PCR NEGATIVE (Negative); Resp Syncy Virus RNA Qual PCR NEGATIVE (Negative); SARS COV2 PCR INHOUSE NEGATIVE (Negative)
[2023-06-09 12:57] LABS: Anion Gap 13 (12-20); Blood Urea Nitrogen 9 mg/dL (9-16); Calcium 9.5 mg/dL (8.4-10.2); Carbon Dioxide 26 mmol/L (22-29); Chloride 105 mmol/L (96-108); Creatinine Clr Calc Pharmacy 149.3; Estimated Glomerular Filt Rate > 60; Glucose Random 131 mg/dL (60-115); Potassium 3.5 mmol/L (3.3-5.1); Sodium 140 mmol/L (135-145)
[2023-06-09] MEDS: Albuterol Sulfate 2.5 MG/0.5 ML VIAL.NEB 5 MG INHALE (13:31)
[2023-06-09] MEDS: Magnesium Sulfate/H2O 2 GM/50 ML PIGGYBACK IV (14:05)
--- NOTE | 2023-06-09 16:10 | P.HPHOSP_ITS ---
History of Present Illness Date of Service: 06/09/23 Chief Complaint: sob 32F PMH moderate persistent asthma, hcv, opiate dependence no longer on suboxone, presented with sob. Patient states that her shortness of breath has been ongoing for the past 2 months. Waxing and weaning. Worse on exertion, associated with wheezes to, denies fevers, has tried multiple courses of prednisone, antibiotics and only gets temporary relief. Possible triggers include mold in house, vaping. In ED patient with diffuse wheezing and dyspnea without hypoxia. Chest x-ray unremarkable [facility] Medical History Asthma Social History Smoked in Last 30 Days: Yes Use of substances other than those prescribed or required for medical reasons: No Substance Use Type: Former Substance User Advance Directives: No Meds Allergies Allergy/AdvReac Type Severity Reaction Status Date / Time No Known Allergies Allergy Verified 04/28/23 19:26 Active Medications: Current Medications Albuterol/Ipratropium (Albuterol/Iprat 2.5/0.5mg 3 Ml Ampul.Neb) 3 ml INHALE RQ4H WHILE AWAKE DEEPALI Clonazepam (Clonazepam 1 Mg Tablet) 1 mg PO TID PRN PRN Reason: Anxiety Methylprednisolone Sodium Succinate (Methylprednisolone Sod Succ 40 Mg/Ml Vial) 40 mg IVPUSH Q6H DEEPALI Sodium Chloride (0.9 % Sodium Chloride Flush 3 Ml Syringe) 3 ml IVFLUSH QSHIFT [facility] Home Medications Medication Instructions Recorded Confirmed Last Taken Type albuterol sulfate 2.5 mg/3 mL 2.5 mg inhalation Q4H PRN 06/09/23 Unknown History (0.083 %) solution for nebulization shortness of breath or wheezing clonazepam 1 mg tablet 0.5 mg PO BID PRN Anxiety 06/09/23 Unknown History dextroamphetamine-amphetamine 15 1 tab PO DAILY 06/09/23 Unknown History mg tablet dextroamphetamine-amphetamine ER 1 cap PO QAM 06/09/23 Unknown History 30 mg 24hr capsule,extend release Physical Exam 2 Vital Signs and Narrative: Vital Signs: Last Vital Signs Temp 97 F 06/09/23 10:40 Pulse 89 06/09/23 13:31 Resp 18 06/09/23 13:31 BP 113/89 06/09/23 10:40 Pulse Ox 97 06/09/23 10:40 O2 Del Method Room Air 06/09/23 10:40 BMI result Body Mass Index 34.5 General: AO X 3, no acute distress Resp: wheezing bilateral, no accessory muscles used CVS: S1,S2,RRR GI: soft, non tender, non distended Neuro: motor grossly intact, alert Psych: appropriate affect, appropriate insight Results Labs 06/09/23 11:29 06/09/23 12:31 Labs: Laboratory Results - last 24 hr 06/09/23 06/09/23 11:29 12:31 MCV 79.4 L MCH 26.5 L MCHC 33.4 RDW 12.6 Plt Count 241 MPV Not Reportable Immature Gran % (Auto) 0.3 Neut % (Auto) 69.8 Lymph % (Auto) 16.8 L [place] % (Auto) 7.6 Eos % (Auto) 5.0 H Baso % (Auto) 0.5 Lymph # (Auto) 1.4 [place] # (Auto) 0.7 Eos # (Auto) 0.4 Baso # (Auto) 0.0 Abs Immat Gran (auto) 0.03 Absolute Neuts (auto) 6.0 Absolute Nucleated RBC 0.000 Nucleated RBC % (auto) 0.0 Smear Tech's Comments VERIFIED Anion Gap 13 Estim Creat Clear Calc 149.3 Estimated GFR > 60 Random Glucose 131 H Calcium 9.5 Influenza Type A (PCR) NEGATIVE Influenza Type B (PCR) NEGATIVE RSV RNA Qual (PCR) NEGATIVE SARS-CoV-2 RNA (RT-PCR) NEGATIVE Imaging Radiologist's Impressions: Impressions Chest X-Ray 06/09/23 10:59 IMPRESSION: Mild central bronchial wall thickening possibly representing bronchitis. This is best demonstrated on the lateral projection. Advise clinical correlation. Assessment and Plan (1) Asthma with exacerbation: Status: Acute Plan 32F PMH moderate persistent asthma, hcv, opiate dependence no longer on suboxone, presented with sob Moderate persistent asthma with acute decompensation Steroids, DuoNebs Will need controller on discharge History of opiate dependence Reports no longer being on opiate replacement therapy History of hepatitis-C Reports clearance Low risk for DVT - encourage ambulation Full code Quality Stroke Does the patient have a stroke diagnosis?: No VTE Prior VTE?: No VTE Risk Level:: Medical - moderate - high VTE Device Contraindication: Treatment Not Indicated VTE Drug Contraindication: Treatment Not Indicated
--- NOTE | 2023-06-09 16:37 | PHA.MEDREC ---
Pharmacy Consult ? Medication Reconciliation Pharmacy has completed the medication reconciliation. Patient reported meds. Franchesca Dykes, LesaD
[2023-06-09] MEDS: Gabapentin 600 MG TABLET PO ×2 (16:49→19:26)
[2023-06-09] MEDS: Amphetamine Mixed Salts 10 MG TABLET 15 MG PO (16:49)
[2023-06-09] MEDS: Albuterol/Iprat 2.5/0.5MG 3 ML AMPUL.NEB INHALE (18:39)
[2023-06-09] MEDS: methylPREDNISolone Sod Succ 40 MG/ML VIAL IVPUSH (19:26)
[2023-06-09] MEDS: Montelukast Sodium 10 MG TABLET PO (19:26)
[2023-06-09] MEDS: clonazePAM 1 MG TABLET PO (20:43)
[2023-06-10] MEDS: methylPREDNISolone Sod Succ 40 MG/ML VIAL IVPUSH ×2 (02:02→08:07)
[2023-06-10] MEDS: 0.9 % Sodium Chloride Flush 3 ML SYRINGE IVFLUSH ×2 (02:03→08:17)
[2023-06-10 02:58] VITALS: BP 117/57; PULSE 90; RESP 16; TEMP 36.6; O2SAT 93
[2023-06-10] MEDS: Albuterol/Iprat 2.5/0.5MG 3 ML AMPUL.NEB INHALE (07:34)
[2023-06-10 07:36] VITALS: PULSE 92; RESP 16; O2SAT 98
[2023-06-10 07:42] VITALS: BP 119/62; PULSE 100; RESP 16; TEMP 36.2; O2SAT 92
[2023-06-10] MEDS: Escitalopram Oxalate 20 MG TABLET PO (08:08)
[2023-06-10] MEDS: Gabapentin 600 MG TABLET PO (08:08)
[2023-06-10] MEDS: Dextroamphetamine/Amphetamine XR 10 MG CAP.ER.24H 30 MG PO (08:08)
[2023-06-10] MEDS: cloNIDine HCL 0.1 MG TABLET PO (08:08)
--- NOTE | 2023-06-10 09:17 | PM.DS ---
DS: Providers Provider Date of Service: 06/10/23 Date of admission: 06/09/23 16:06 Primary care physician: None Physician DS: Diagnosis Discharge Diagnosis (1) Asthma with exacerbation: Status: Acute DS: Summary Hospital Course Hospital Course: from initial hpi: 32F PMH moderate persistent asthma, hcv, opiate dependence no longer on suboxone, presented with sob. Patient states that her shortness of breath has been ongoing for the past 2 months. Waxing and weaning. Worse on exertion, associated with wheezes to, denies fevers, has tried multiple courses of prednisone, antibiotics and only gets temporary relief. Possible triggers include mold in house, vaping. In ED patient with diffuse wheezing and dyspnea without hypoxia. Chest x-ray unremarkable hospital course: patient was admitted for moderate persistent asthma with acute decompnesation, likely due to environmental triggers such as mold and vaping. she was treated with iv solumedrol and dunoebs with significant improvement. she will be discharged on prendiosne 40mg daily for 5 days and started on breo. she will pursue elimination of environmental triggers. for history of opiate dependence she is no longer on opiate replacement theory, reports 8 years soberiety, for history of hcv she reports spontaneous recoevery. patient is feeling better and will be discharged home. Time Attestation Discharge coordination time: Greater than 30 minutes Quality: Safe Use of Opioids Does Pt have an Active Cancer Diagnosis on the Problem List?: No Quality: Stroke Does the patient have a stroke diagnosis?: No Physical Exam Vital Signs: Vital Signs: Last Vital Signs Temp 97.2 F 06/10/23 07:42 Pulse 100 06/10/23 07:42 Resp 16 06/10/23 07:42 BP 119/62 06/10/23 07:42 Pulse Ox 92 06/10/23 07:42 O2 Del Method Room Air 06/10/23 07:42 BMI result Body Mass Index 34.4 General: AO X 3, no acute distress Resp: CTA bilateral, no accessory muscles used CVS: S1,S2,RRR GI: soft, non tender, non distended Neuro: motor grossly intact, alert Psych: appropriate affect, appropriate insight DS: Data Data Completed and Pending Labs on day of discharge: Laboratory Results - last 24 hr 06/09/23 06/09/23 11:29 12:31 WBC 8.6 RBC 5.09 Hgb 13.5 Hct 40.4 MCV 79.4 L MCH 26.5 L MCHC 33.4 RDW 12.6 Plt Count 241 MPV Not Reportable Immature Gran % (Auto) 0.3 Neut % (Auto) 69.8 Lymph % (Auto) 16.8 L [place] % (Auto) 7.6 Eos % (Auto) 5.0 H Baso % (Auto) 0.5 Lymph # (Auto) 1.4 [place] # (Auto) 0.7 Eos # (Auto) 0.4 Baso # (Auto) 0.0 Abs Immat Gran (auto) 0.03 Absolute Neuts (auto) 6.0 Absolute Nucleated RBC 0.000 Nucleated RBC % (auto) 0.0 Smear Tech's Comments VERIFIED Sodium 140 Potassium 3.5 Chloride 105 Carbon Dioxide 26 Anion Gap 13 BUN 9 Creatinine 0.65 Estim Creat Clear Calc 149.3 Estimated GFR > 60 Random Glucose 131 H Calcium 9.5 Influenza Type A (PCR) NEGATIVE Influenza Type B (PCR) NEGATIVE RSV RNA Qual (PCR) NEGATIVE SARS-CoV-2 RNA (RT-PCR) NEGATIVE Discharge Plan Discharge Anticipated Discharge Date/Time: 06/10/23 09:15 Patient Disposition: Home, Self-Care Discharge Diagnosis: asthma Referrals: Physician,None [Primary Care Provider] - 3 days Discharge Medications: New prednisone 20 mg tablet 40 mg PO DAILY Qty: 10 0RF fluticasone furoate-vilanterol [Breo Ellipta] 100-25 mcg/dose blister with device 1 inh inhalation Q24H Qty: 60 0RF Continued albuterol sulfate [ProAir HFA] 90 mcg/actuation HFA aerosol inhaler 2 puff inhalation Q4-6H PRN (Reason: shortness of breath or wheezing) Qty: 8.5 0RF (DME) nebulizers Misc See Rx Instructions .Route Qty: 1 0RF Rx Instructions: As directed montelukast [Singulair] 10 mg tablet 10 mg PO BEDTIME Qty: 30 0RF clonazepam 1 mg tablet 0.5 mg PO BID PRN (Reason: Anxiety) dextroamphetamine-amphetamine 15 mg tablet 1 tab PO DAILY@1500 dextroamphetamine-amphetamine 30 mg capsule,extended release 24hr 1 cap PO DAILY albuterol sulfate 2.5 mg /3 mL (0.083 %) solution for nebulization 2.5 mg inhalation Q4H PRN (Reason: shortness of breath or wheezing) clonidine HCl 0.1 mg tablet 0.1 mg PO DAILY gabapentin 600 mg tablet 600 mg PO TID escitalopram oxalate 20 mg tablet 20 mg PO DAILY clonidine HCl 0.1 mg tablet 0.1 mg PO BEDTIME PRN (Reason: Insomnia) Discharge Orders: Discharge Order (Routine); Ordered 06/10/23 Ordered By: Claudy Lunsford Diet: Advance to usual diet Activity on Discharge: As tolerated Stand Alone Forms: Patient Portal Discharge page Care Plan Goals: recovery, prevent exacerbations Health Concerns: asthma Plan of Treatment: 5 days prednsione, start breo, avoid environmental triggers (mold, vaping) Assessment: see above
--- NOTE | 2023-06-10 09:57 | MHC.CM.PN ---
pt lives alone is indepedent ,is being dcd today has her own car in parking lot
== END 2023-06-10 11:19 | disposition home or self-care (01) ==
LOC: HO.ED 15:36 → HO.EDOVER 16:13 → HO.S3 17:13
PROVIDERS: Physician Assistant; Admitting Provider Internal Medicine; Emergency Provider Emergency Medicine Emergency Medical Services; Visit Provider Internal Medicine
DX: J45.41 Moderate persistent asthma with (acute) exacerbation (principal); R06.00 Dyspnea, unspecified; R05.9 Cough, unspecified; R06.02 Shortness of breath; R07.89 Other chest pain; R00.0 Tachycardia, unspecified; Z86.19 Personal history of other infectious and parasitic diseases; Z92.29 Personal history of other drug therapy; F11.21 Opioid dependence, in remission; Z20.822 Contact with and (suspected) exposure to COVID-19; Z20.828 Contact with and (suspected) exposure to other viral communicable diseases
CPT/HCPCS: 0241U; 36415; 71046; 80048; 85025; 93005; 96365; 96372; 96375; 96376; 99221; 99285; J2920; J2930; J3475

== ENCOUNTER → 2023-06-09 11:45 | Outpatient (BNV) | payer OTHER, SELFPAY | PROVIDERS: Emergency Provider Emergency Medicine Emergency Medical Services; Visit Provider Internal Medicine | DX: R00.0 Tachycardia, unspecified (principal) | CPT/HCPCS: 93010 ==

== ENCOUNTER → 2023-06-09 16:06 | Outpatient (BNV) | payer OTHER, SELFPAY | PROVIDERS: Admitting Provider Internal Medicine; Emergency Provider Emergency Medicine Emergency Medical Services; Visit Provider Internal Medicine | DX: J45.901 Unspecified asthma with (acute) exacerbation (principal) | CPT/HCPCS: 99223; 99239 ==

== ENCOUNTER 2023-11-09 19:20 | Emergency (ER) | payer OTHER, SELFPAY ==
[2023-11-09 19:25] VITALS: BP 147/71; PULSE 115; RESP 20; TEMP 37.1; O2SAT 97; BMI 34.2
--- NOTE | 2023-11-09 19:29 | ED.GENADULT ---
HPI - General Adult General Chief complaint: General Medical Stated complaint: gas leak in house - symptomatic Time Seen by Provider: 11/09/23 22:03 Source: patient Mode of arrival: ambulatory Limitations: no limitations History of Present Illness HPI narrative: Patient is a 33-year-old female who presents to the emergency department both of her children for evaluation after concern for prolonged exposure to natural gas. Patient states that her significant other has reported smelling gas in the home a numerous occasions, he is at bedside and reports that he has smelled gas for at least 3 years. She denies ever noticing it. Evidently today she had a walk through with her landlord, who also noted a gas smell, this was further evaluated and she was advised that there was a natural gas leak which has since been repaired. She presents with her children for evaluation of ongoing symptoms for the past 9 months including intermittent nosebleeds, nausea, vomiting, lightheadedness, nonproductive cough. She states that these symptoms are most prominent when she is at home. States that when she is out of the home she typically does not experience any these symptoms. She has not sought evaluation for these symptoms previously. Related Data Home Medications ?Medication ?Instructions ?Recorded ?Confirmed albuterol sulfate 2.5 mg/3 mL 2.5 mg inhalation Q4H PRN 06/09/23 06/09/23 (0.083 %) solution for nebulization shortness of breath or wheezing clonazepam 1 mg tablet 0.5 mg PO BID PRN Anxiety 06/09/23 06/09/23 clonidine HCl 0.1 mg tablet 0.1 mg PO BEDTIME PRN Insomnia 06/09/23 06/09/23 clonidine HCl 0.1 mg tablet 0.1 mg PO DAILY 06/09/23 06/09/23 dextroamphetamine-amphetamine 15 1 tab PO DAILY@1500 06/09/23 06/09/23 mg tablet dextroamphetamine-amphetamine ER 1 cap PO DAILY 06/09/23 06/09/23 30 mg 24hr capsule,extend release escitalopram oxalate 20 mg tablet 20 mg PO DAILY 06/09/23 06/09/23 gabapentin 600 mg tablet 600 mg PO TID 06/09/23 06/09/23 Previous Rx's ?Medication ?Instructions ?Recorded albuterol sulfate 90 mcg/actuation 2 puff inhalation Q4-6H PRN 04/28/23 aerosol inhaler (ProAir HFA) shortness of breath or wheezing #8.5 grams montelukast 10 mg tablet 10 mg PO BEDTIME #30 tabs 05/18/23 (Singulair) nebulizers #1 ea 05/18/23 fluticasone furoate 100 1 inh inhalation Q24H #60 ea 06/10/23 mcg-vilanterol 25 mcg/dose inhalation powder (Breo Ellipta) prednisone 20 mg tablet 40 mg (2 x 20 mg) PO DAILY #10 tabs 06/10/23 Allergies Allergy/AdvReac Type Severity Reaction Status Date / Time No Known Allergies Allergy Verified 11/09/23 19:27 Review of Systems Review of Systems: Yes all other systems are reviewed and are negative PMFSH Past Medical History Attestation statement: The following information was validated with the patient. Source: old records reviewed Medical History Asthma Social History Social History Patient Tobacco Use Status: Never used Tobacco Substance Use Type: Former Substance User Advance Directives: No Advance Directives Information Provided: No Do you have a plan to hurt others: No Plan service: No Physical Exam ED Vital Signs: Vital Signs - 24 hr 11/09/23 19:25 11/09/23 23:29 11/09/23 23:57 Temperature 98.8 F 98.0 F 98 F Pulse Rate 115 H 72 72 Respiratory Rate 20 20 20 Blood Pressure 147/71 H 139/72 134/72 Pulse Oximetry 97 99 99 Oxygen Delivery Method Room Air Room Air Room Air BMI result Body Mass Index 34.2 Appearance: Alert.?Oriented to person, place and time. No acute distress.?Normal affect. Eyes: Pupils equal, round and reactive to light.? EOMI. No nystagmus. ENT: Pharynx normal.?? Neck: Normal inspection.? Neck supple.?? CVS: Heart sounds normal. Normal heart rate and rhythm.? Pulses normal.?? Respiratory: No respiratory distress.? Lung sounds clear to auscultation bilaterally?? Abdomen: Soft and non-tender. Normoactive bowel sounds. Skin: Skin warm and dry.? Normal skin color.??? Extremities: No lower extremity edema.? No calf ttp? Neuro: Moves all extremities spontaneously. Sensation intact bilaterally. CN II-XII intact. No focal neuro deficits. Ambulates with normal steady gait. Course Course Course Narrative: This is a Rapid Medical Examination (RME) performed by Zion Holland PA-C in triage. Full HPI, ROS, assessment and treatment plan per primary provider in the Main ED. 33 yo female w/ hx of ADHD here with both children for evaluation s/p natural gas leak in house. She reports nose bleeds, nausea, vomiting, light headedness, and cough since march. The symptoms are more prominant while at home. Unknown time of exposure. Plan: Basic lab work ordered. Spoke with poison control regarding orders. They will call back after speaking with the Toxicology department for further workup recommendation. Medical Decision Making Medical Decision Making [facility] Narrative: Patient is a 33-year-old female with past medical history of asthma who presents to the emergency department for evaluation multiple symptom was ongoing for the past 9 months as per HPI. Overall she appears well, nontoxic, afebrile. She has in no respiratory distress, she is speaking clear full sentences. Currently she denies any active symptoms. Her physical examination is benign. Symptoms overall concerning for ongoing carbon monoxide exposure. I reviewed labs obtained prior to my assumption of care, CBC is overall unremarkable, no electrolyte derangement, no CANDICE, LFTs in lipase within normal range. serum bicarb 21 Carboxyhemoglobin 2%, at this time no evidence of severe toxicity; no seizures, no altered mental status, no indication for arterial blood gases will dyspnea or hypoxia to suggest a chest x-ray to evaluate for pulmonary edema, no indication for high-flow oxygen or further treatment at this time. Reportedly the gastric has been repaired, patient reports be agreeable for discharge home which I feel is reasonable as she is stable at this time. Differential Diagnosis Differential Diagnoses: The differential diagnosis associated with the presentation includes (See narrative above) Admission/Observation Consideration of admission/observation: Escalation of care including admission/observation considered (See narrative above) Lab Data MDM Lab Attestation statement: I reviewed the patient's lab results. (See narrative above) 11/09/23 20:02 11/09/23 20:02 Labs: Lab Results 11/09/23 11/09/23 Range/Units 20:02 20:09 WBC 8.3 (4.8-10.8) X10*3/uL RBC 4.83 (4.20-5.50) X10*6/uL Hgb 13.2 (12.0-16.0) g/dl Hct 39.0 (37.0-47.0) % MCV 80.7 (80.0-98.0) fL MCH 27.3 (27.0-33.0) pg MCHC 33.8 (31.0-35.0) g/dl RDW 12.5 (11.0-16.0) % Plt Count 308 D (160-400) X10*3/uL MPV 10.9 (9.4-12.3) fL Immature Gran % (Auto) 0.2 (0.0-0.4) % Neut % (Auto) 65.9 (45-73) % Lymph % (Auto) 22.1 (20-40) % [place] % (Auto) 5.4 (2-11) % Eos % (Auto) 5.8 H (0-4) % Baso % (Auto) 0.6 (0-2) % Lymph # (Auto) 1.8 (1.2-4.9) X10*3/uL [place] # (Auto) 0.5 (0.1-1.2) X10*3/uL Eos # (Auto) 0.5 H (0.0-0.4) X10*3/uL Baso # (Auto) 0.1 (0.0-0.2) X10*3/uL Abs Immat Gran (auto) 0.02 (0.00-0.03) X10*3/uL Absolute Neuts (auto) 5.5 (2.0-8.3) x10*3/uL Absolute Nucleated RBC 0.000 (0.0-0.012) X10*3/uL Nucleated RBC % (auto) 0.0 (0.0-0.2) /100WBC Carboxyhemoglobin % 2.0 % Sodium 140 (135-145) mmol/L Potassium 3.9 (3.3-5.1) mmol/L Chloride 108 (96-108) mmol/L Carbon Dioxide 21 L (22-29) mmol/L Anion Gap 15 (12-20) BUN 10 (9-16) mg/dL Creatinine 0.64 (0.5-1.4) mg/dL Estim Creat Clear Calc 154.8 Estimated GFR > 60 Random Glucose 94 (60-115) mg/dL Calcium 9.7 (8.4-10.2) mg/dL Magnesium 2.3 (1.6-2.6) mg/dL Total Bilirubin 0.3 (0.0-1.0) mg/dL AST 14 (5-31) U/L ALT 14 (0-31) U/L Alkaline Phosphatase 49 (39-117) U/L Total Protein 7.5 (6.5-8.0) g/dL Albumin 4.6 (3.5-5.0) g/dL Lipase 37 (8-78) U/L Independent Historian Clinical information obtained from an independent historian. History obtained from or confirmed by: Spouse (Present who confirms history) Discharge Plan Discharge Clinical Impression: Natural gas exposure Patient Disposition: Home, Self-Care Instructions: Carbon Monoxide Poisoning (ED) Additional Instructions: You were evaluated in the emergency department today for evaluation after concern for exposure to natural gas leak within your home. As discussed, she appears well today. She has not in any respiratory distress. Her lung sounds are clear. She does not have alarming carbon monoxide levels that would warrant additional treatment at this time. Please contact the packaging mechanic to arrange for a follow-up visit should symptoms continue to persist now that this leak has been repaired. You may return back to emergency department with any new or worsening symptoms or concerns Prescriptions: No Action albuterol sulfate [ProAir HFA] 90 mcg/actuation HFA aerosol inhaler 2 puff inhalation Q4-6H PRN (Reason: shortness of breath or wheezing) Qty: 8.5 0RF (DME) nebulizers Misc See Rx Instructions .Route Qty: 1 0RF Rx Instructions: As directed montelukast [Singulair] 10 mg tablet 10 mg PO BEDTIME Qty: 30 0RF clonazepam 1 mg tablet 0.5 mg PO BID PRN (Reason: Anxiety) dextroamphetamine-amphetamine 15 mg tablet 1 tab PO DAILY@1500 dextroamphetamine-amphetamine 30 mg capsule,extended release 24hr 1 cap PO DAILY albuterol sulfate 2.5 mg /3 mL (0.083 %) solution for nebulization 2.5 mg inhalation Q4H PRN (Reason: shortness of breath or wheezing) clonidine HCl 0.1 mg tablet 0.1 mg PO DAILY gabapentin 600 mg tablet 600 mg PO TID escitalopram oxalate 20 mg tablet 20 mg PO DAILY clonidine HCl 0.1 mg tablet 0.1 mg PO BEDTIME PRN (Reason: Insomnia) prednisone 20 mg tablet 40 mg PO DAILY Qty: 10 0RF fluticasone furoate-vilanterol [Breo Ellipta] 100-25 mcg/dose blister with device 1 inh inhalation Q24H Qty: 60 0RF Referrals: Physician,Unknown J [Primary Care Provider] - Interventions: ED Discharge Assessment Last Done: 11/09/23 23:57 Discharge Date/Time: 11/09/23 23:30 Print Language: [place] Zealander
[2023-11-09 20:07] LABS: MANUAL DIFF FLAG NO
[2023-11-09 20:16] LABS: Carbon Monoxide Refer to POC result
--- OUTSIDE RECORDS SUMMARY | 2023-11-09 20:17 | XMS_ITS | Continuity of Care Document ---
Author Organization [facility] Address [address] [place] [address]- Care Team Providers Care Master Data Analyst Name Role Phone Not on Staff, PCP Primary Care Physician Unavail able [place]counter [facility] [place] Date(s): 10/08/21 - 10/15/21 [facility] [address] [place], [place] [address] Attending Physician: Kain Ordonez DO Referring Physician: Not on Staff, Referring MD Allergies, Adverse Reactions, Alerts No Known Allergies Medications Amoxil 500 mg oral tablet 1 tablet, By Mouth, 3 times a day, # 30 tablet, 0 Refills Start Date: 02/07/09 Stop Date: 02/17/09 Status: Ordered Claritin Reditab 10 mg oral tablet, disintegrating 1 tablet = 10 mg, By Mouth, Daily, PRN Nasal Congestion, 0 Refills, Maintenance, 01/01/19 13:35:52 EDT Start Date: 01/01/19 Status: Ordered clonazepam 1 mg oral tablet 1 tablet = 1 mg, By Mouth, 2 times a day, # 14 tablet, 0 Refills, Maintenance, Tablet Start Date: 06/08/13 Stop Date: 06/15/13 Status: Ordered nystatin 978427 u/ml oral suspension 5 mL, By Mouth, 4 times a day, # 300 mL, 0 Refills Start Date: 02/11/09 Stop Date: 02/18/09 Status: Ordered Paxil 10 mg oral tablet 1 tablet, By Mouth, Daily, # 30 tablet, 0 Refills, Tablet Start Date: 07/11/09 Stop Date: 08/10/09 Status: Ordered Percolone 5 mg oral tablet 1 tablet, By Mouth, Every 6 hours, PRN Pain, # 12 tablet, 0 Refills Start Date: 02/10/09 Stop Date: 02/14/09 Status: Ordered prednisone 10 mg oral tablet 3 tab po daily x 3d, 2 tab po daily x 3 d, 1 tab po daily x 3 days, By Mouth, Daily, # 18 tablet, 0Refills Start Date: 02/07/09 Stop Date: 03/09/09 Status: Ordered prednisone 20 mg oral tablet 2 tablet = 40 mg, By Mouth, Daily, # 10 tablet, 0 Refills Start Date: 02/03/09 Stop Date: 02/08/09 Status: Ordered Multivitamins with Vitamin B Complex, Vitamin C, Minerals and L- Methylfolate oral capsule 1 capsule, By Mouth, Daily, # 30 capsule, 8 Refills, Maintenance, 01/01/19 17:09:57 EDT, Capsule, 1capsule By Mouth Daily,x30 days Start Date: 01/01/19 Stop Date: 09/28/19 Status: Ordered ProAir HFA 90 mcg/inh inhalation aerosol with adapter 1 puffs, Inhalation, Every 4 hours, PRN for wheezing, # 8.5 Gm, 0 Refills, Aerosol Start Date: 07/11/09 Stop Date: 08/10/09 Status: Ordered promethazine 25 mg oral tablet 1 tablet = 25 mg, By Mouth, Every 8 hours, PRN Other, # 21 tablet, 0 Refills, Maintenance, 142:51:11, Tablet Start Date: 10/14/13 Stop Date: 10/21/13 Status: Ordered Suboxone 12 mg-3 mg sublingual film Sublingual, Daily, 0 Refills, Maintenance, 01/01/19 13:34:41 EDT Start Date: 01/01/19 Status: Ordered Problem List Condition Effective Dates Status Health Status Inform ant Hepatitis C(Confirmed) 1 Active 1untreated . contracted from drug abuse. Social History Social History Type Response Smoking Status Never (less than 100 in lifetime) entered on: 01/01/19 Sex
--- OUTSIDE RECORDS SUMMARY | 2023-11-09 20:17 | XMS_ITS | Continuity of Care Document ---
Author Organization [facility] Address [address] [place] [address]- Care Team Providers Care Park Superintendent Name Role Phone Not on Staff, PCP Primary Care Physician Unavail able Encounter [facility] [place] Date(s): 10/08/21 - 11/07/21 [facility] [address] [place], [place] [address] Attending Physician: Dorothea Mcconnell Admitting Physician: Dorothea Mcconnell Referring Physician: AdmtrDorothea Allergies, Adverse Reactions, Alerts No Known Allergies [...] 06/08/13 Stop Date: 06/15/13 Status: Ordered nystatin [id number] u/ml oral suspension 5 mL, By Mouth, [...]
[2023-11-09 20:21] LABS: Basophils Absolute Auto 0.1 X10*3/uL (0.0-0.2); Basophils Percent Auto 0.6 % (0-2); Eosinophils Absolute Auto 0.5 X10*3/uL (0.0-0.4); Eosinophils Percent Auto 5.8 % (0-4); Hemoglobin 13.2 g/dl (12.0-16.0); Imm Gran Abs Auto 0.02 X10*3/uL (0.00-0.03); Imm Gran Pct Auto 0.2 % (0.0-0.4); Lymphocytes Absolute Auto 1.8 X10*3/uL (1.2-4.9); Lymphocytes Percent Auto 22.1 % (20-40); Mean Corpuscular HGB Conc 33.8 g/dl (31.0-35.0); Mean Corpuscular Hemoglobin 27.3 pg (27.0-33.0); Mean Corpuscular Volume 80.7 fL (80.0-98.0); Mean Platelet Volume 10.9 fL (9.4-12.3); Monocytes Absolute Auto 0.5 X10*3/uL (0.1-1.2); Monocytes Percent Auto 5.4 % (2-11); Neutrophils Absolute Auto 5.5 x10*3/uL (2.0-8.3); Neutrophils Percent Auto 65.9 % (45-73); Platelet Count 308 X10*3/uL (160-400); Red Blood Count 4.83 X10*6/uL (4.20-5.50); Red Cell Distribution Width 12.5 % (11.0-16.0); White Blood Count 8.3 X10*3/uL (4.8-10.8)
--- NOTE | 2023-11-09 20:24 | PC.NURSE ---
Poison control called, recommended supportive care and carboxyhemoglobin to be checked
[2023-11-09 20:28] LABS: Alanine Aminotransferase 14 U/L (0-31); Albumin Level 4.6 g/dL (3.5-5.0); Alkaline Phosphatase 49 U/L (39-117); Anion Gap 15 (12-20); Aspartate Amino Transferase 14 U/L (5-31); Bilirubin Total 0.3 mg/dL (0.0-1.0); Blood Urea Nitrogen 10 mg/dL (9-16); Calcium 9.7 mg/dL (8.4-10.2); Carbon Dioxide 21 mmol/L (22-29); Chloride 108 mmol/L (96-108); Creatinine Clr Calc Pharmacy 154.8; Estimated Glomerular Filt Rate > 60; Glucose Random 94 mg/dL (60-115); Lipase 37 U/L (8-78); Magnesium 2.3 mg/dL (1.6-2.6); Potassium 3.9 mmol/L (3.3-5.1); Sodium 140 mmol/L (135-145); Total Protein 7.5 g/dL (6.5-8.0)
[2023-11-09 23:29] VITALS: BP 139/72; PULSE 72; RESP 20; TEMP 36.7; O2SAT 99
[2023-11-09 23:57] VITALS: BP 134/72; PULSE 72; RESP 20; TEMP 36.6; O2SAT 99
== END 2023-11-09 23:30 | disposition home or self-care (01) ==
PROVIDERS: Physician Assistant Medical; Emergency Provider Student in an Organized Health Care Education/Training Program
DX: Z77.098 Contact with and (suspected) exposure to other hazardous, chiefly nonmedicinal, chemicals (principal); Z79.899 Other long term (current) drug therapy
CPT/HCPCS: 36415; 80053; 82375; 83690; 83735; 85025; 99283

== ENCOUNTER 2024-01-23 18:01 | Emergency (ER) | payer OTHER, SELFPAY ==
--- NOTE | ~2024-01-23 | CT_ITS ---
EXAMINATION: CT ABDOMEN AND PELVIS WITHOUT CONTRAST CLINICAL INFORMATION: Right-sided abdominal pain COMPARISON: None available. TECHNIQUE: Multidetector volumetric imaging was performed from the superior aspect of the liver through the pubic symphysis. Sagittal and coronal reformatted images were obtained on the technologist's workstation. This CT examination was performed using dose optimization techniques as appropriate, variously including the following: *Automated exposure control *Adjustment of mA and/or kV according to patient size (this includes techniques or standardized protocols for targeted exams where dose is matched to indication/reason for exam; i.e. extremities or head) *Use of iterative reconstruction technique DLP: 720 mGy-cm FINDINGS: LUNG BASES: The visualized lung bases are unremarkable. LIVER, GALLBLADDER, AND BILIARY TREE: The liver is normal in size, shape, and attenuation. No focal hepatic lesion or biliary ductal dilatation is present. The gallbladder is unremarkable with no evidence of radiopaque gallstones, gallbladder wall thickening, or obvious pericholecystic inflammatory changes. PANCREAS: Unremarkable. SPLEEN: Unremarkable. ADRENAL GLANDS: Unremarkable. KIDNEYS AND URETERS: The kidneys are normal in size, shape, and attenuation. No hydronephrosis, hydroureter, or calculi seen. No perinephric stranding. BLADDER: Unremarkable. GASTROINTESTINAL TRACT: The small and large bowel are unremarkable. The appendix is unremarkable. ABDOMINAL WALL: No significant hernia is appreciated. LYMPH NODES: Normal. VASCULAR: Unremarkable. PELVIC VISCERA: Anteverted uterus. There is rightward rotation of the intrauterine device by approximately 90 degrees and eccentrically positioned within the endometrial cavity. The left arm is approximately 4-5 mm from the serosa. No solid adnexal masses. No evidence of perforation. OSSEOUS STRUCTURES: Unremarkable. CT/CT abdomen pelvis wo IV con IMPRESSION: Approximately 90 degree rightward rotation of the intrauterine device. The left arm of the intrauterine device is positioned within the myometrium, approximately 4 to 5 mm from the serosa. These findings are consistent with an embedded IUD device. Recommend gynecology consultation. Fleischner guidelines were followed.
[2024-01-23 19:06] VITALS: BP 116/63; PULSE 89; RESP 18; TEMP 36.9; O2SAT 96; BMI 31.1
[2024-01-23 19:37] LABS: MANUAL DIFF FLAG NO
[2024-01-23 19:38] LABS: Basophils Absolute Auto 0.1 X10*3/uL (0.0-0.2); Eosinophils Absolute Auto 0.4 X10*3/uL (0.0-0.4); Hematocrit 37.2 % (37.0-47.0); Hemoglobin 12.4 g/dl (12.0-16.0); Imm Gran Abs Auto 0.02 X10*3/uL (0.00-0.03); Imm Gran Pct Auto 0.3 % (0.0-0.4); Lymphocytes Absolute Auto 1.9 X10*3/uL (1.2-4.9); Lymphocytes Percent Auto 26.9 % (20-40); Mean Corpuscular HGB Conc 33.3 g/dl (31.0-35.0); Mean Corpuscular Hemoglobin 27.3 pg (27.0-33.0); Mean Corpuscular Volume 81.8 fL (80.0-98.0); Mean Platelet Volume 10.5 fL (9.4-12.3); Monocytes Absolute Auto 0.4 X10*3/uL (0.1-1.2); Monocytes Percent Auto 5.9 % (2-11); Neutrophils Absolute Auto 4.3 x10*3/uL (2.0-8.3); Neutrophils Percent Auto 59.9 % (45-73); Platelet Count 299 X10*3/uL (160-400); Red Blood Count 4.55 X10*6/uL (4.20-5.50); Red Cell Distribution Width 12.2 % (11.0-16.0); White Blood Count 7.1 X10*3/uL (4.8-10.8)
[2024-01-23 19:40] LABS: Appearance Urine Clear; Color Urine Yellow; Glucose Urine UA Negative (Negative); Leukocyte Esterase Urine Small (1+) (Negative); Nitrite Urine Negative (Negative); UMIC TRIGGER UACC YES; Urine Blood Negative (Negative); Urine Ketones Negative (Negative); Urine Protein Negative (Neg-Trace)
[2024-01-23 19:41] LABS: UPreg QC Valid YES; Urine Pregnancy NEGATIVE (NEGATIVE)
[2024-01-23 19:52] LABS: Alanine Aminotransferase 14 U/L (0-31); Albumin Level 4.4 g/dL (3.5-5.0); Alkaline Phosphatase 49 U/L (39-117); Anion Gap 15 (12-20); Aspartate Amino Transferase 13 U/L (5-31); Bilirubin Direct 0.1 mg/dL (0.0-0.5); Bilirubin Total 0.4 mg/dL (0.0-1.0); Blood Urea Nitrogen 10 mg/dL (9-16); Calcium 9.7 mg/dL (8.4-10.2); Carbon Dioxide 21 mmol/L (22-29); Chloride 108 mmol/L (96-108); Creatinine Clr Calc Pharmacy 134.2; Estimated Glomerular Filt Rate > 60; Glucose Random 95 mg/dL (60-115); Lipase 35 U/L (8-78); Potassium 3.7 mmol/L (3.3-5.1); Sodium 140 mmol/L (135-145); Total Protein 7.1 g/dL (6.5-8.0)
[2024-01-23 19:59] LABS: Bacteria Urine None Seen (None Seen); Hyaline Casts Urine 0-2 /LPF (0-2); RBC Urine 0-2 /HPF (0-2); Squamous Epithelial Cell Urine 0-2 /HPF (0-2); UACC Culture Trigger YES; WBC Urine 0-5 /HPF (0-5)
[2024-01-23 21:07] VITALS: BP 112/58; PULSE 71; RESP 16; TEMP 36.8; O2SAT 98
--- NOTE | 2024-01-23 21:18 | ED_ITS ---
HPI - General Adult General Chief complaint: Back Pain/Injury Stated complaint: ?kidney infection, back pain Time Seen by Provider: 01/23/24 21:09 Source: patient Mode of arrival: ambulatory Limitations: no limitations History of Present Illness ED Provider: DR. Law HPI narrative: 33-year-old female came in for evaluation of bilateral lower back pain right more than left pain radiates from right side of the back to the right groin area, symptoms started about associated with loss of appetite and decreased p.o. intake, patient lost weight unintentionally over the last 3 weeks unable to tell how many lb exactly, complaining of frequency urination with no dysuria or hematuria. No vaginal discharge or bleed. No fever, no chills, last bowel movement was this morning and passing flatus, never had intra-abdominal surgery. Related Data Home Medications ?Medication ?Instructions ?Recorded ?Confirmed albuterol sulfate 2.5 mg/3 mL 2.5 mg inhalation Q4H PRN 06/09/23 06/09/23 (0.083 %) solution for nebulization shortness of breath or wheezing clonazepam 1 mg tablet 0.5 mg PO BID PRN Anxiety 06/09/23 06/09/23 clonidine HCl 0.1 mg tablet 0.1 mg PO BEDTIME PRN Insomnia 06/09/23 06/09/23 clonidine HCl 0.1 mg tablet 0.1 mg PO DAILY 06/09/23 06/09/23 dextroamphetamine-amphetamine 15 1 tab PO DAILY@1500 06/09/23 06/09/23 mg tablet dextroamphetamine-amphetamine ER 1 cap PO DAILY 06/09/23 06/09/23 30 mg 24hr capsule,extend release escitalopram oxalate 20 mg tablet 20 mg PO DAILY 06/09/23 06/09/23 gabapentin 600 mg tablet 600 mg PO TID 06/09/23 06/09/23 Previous Rx's ?Medication ?Instructions ?Recorded albuterol sulfate 90 mcg/actuation 2 puff inhalation Q4-6H PRN 04/28/23 aerosol inhaler (ProAir HFA) shortness of breath or wheezing #8.5 grams montelukast 10 mg tablet 10 mg PO BEDTIME #30 tabs 05/18/23 (Singulair) nebulizers #1 ea 05/18/23 fluticasone furoate 100 1 inh inhalation Q24H #60 ea 06/10/23 mcg-vilanterol 25 mcg/dose inhalation powder (Breo Ellipta) prednisone 20 mg tablet 40 mg (2 x 20 mg) PO DAILY #10 tabs 06/10/23 Allergies Allergy/AdvReac Type Severity Reaction Status Date / Time phenazopyridine Allergy Hives Verified 01/23/24 19:11 [From Pyridium] Review of Systems 2 Review of Systems: All other systems are reviewed and are negative Constitutional: Reports as per HPI and Reports no additional constitutional complaints Eyes: Reports as per HPI and Reports no additional eye complaints Reports system reviewed and no additional complaints, except as documented Cardiovascular: Reports as per HPI and Reports no additional cardiovascular complaints Respiratory: Reports as per HPI and Reports no additional respiratory complaints Gastrointestinal: Reports as per HPI and Reports no additional gastrointestinal complaints Genitourinary: Reports no additional female genitourinary complaints Musculoskeletal: Reports no additional musculoskeletal complaints Skin/Breast: Reports system reviewed and no additional complaints, except as docu Psychiatric: Reports no additional psychiatric complaints Endocrine: Reports no additional endocrine complaints Hematologic/Lymphatic: Reports no additional hematologic/lymphatic complaints Allergic/Immunologic: Reports no additional allergic/immunologic complaints Reports system reviewed and no additional complaints, except as documented and Reports Abnormal speech present [facility] Past Medical History Medical History Asthma Social History Social History Unable to assess alcohol history related to: Unknown Patient Tobacco Use Status: Never used Tobacco Smoked in Last 30 Days: No Use of substances other than those prescribed or required for medical reasons: No Substance Use Type: Former Substance User Advance Directives: No Advance Directives Information Provided: No Do you have a plan to hurt others: No Plan Patient : No service: No Physical Exam ED Vital Signs: Vital Signs - 24 hr 01/23/24 19:06 01/23/24 21:07 Temperature 98.4 F 98.3 F Pulse Rate 89 71 Respiratory Rate 18 16 Blood Pressure 116/63 112/58 L Pulse Oximetry 96 98 Oxygen Delivery Method Room Air Room Air BMI result Body Mass Index 31.1 Vital signs have been reviewed and appear to be correct. Blood pressure elevated. Heart rate normal. Respiratory rate normal. Temperature normal. Oxygen saturation normal. Appearance: Alert. Oriented X3. No acute distress. Head: Normal external exam. Normocephalic. Atraumatic. No Vogel signs noted. No raccoon eyes noted Eyes: PERRLA. EOMI. Conjunctiva and sclera normal. Eyelids normal. ENT: TM's Normal. Pharynx normal. Uvula midline. Moist mucous membranes. No trismus noted. No drooling noted. No muffled voice noted. Neck: Normal inspection. Neck supple. FROM. No adenopathy. Thyroid Normal. No meningeal signs. No neck mass noted. CVS: Normal heart rate and rhythm. Heart sound normal. No murmurs noted. Pulses normal throughout. Respiratory: No respiratory distress. Painless inspiration. Breath sounds normal. No wheezes/rales/rhonchi noted. Chest nontender. No accessory muscle usage noted or decreased air movement noted. Abdomen: Soft and nontender. Bowel sounds normal in all 4 quadrants. No distention noted. No organomegaly noted. No visible injury noted. Back: No CVA tenderness. Full range of motion noted. Skin: Skin warm and dry. Normal skin color. Normal skin turgor. No rashes/lesions/lacerations noted. Extremities: No lower extremity edema. Extremities exhibit normal range of motion. Extremities nontender. Neuro: Oriented X 3. Cranial nerve exam: II-XII are grossly intact No motor deficit. No sensory deficit. Reflexes normal. Course Reevaluation(s) Reevaluation #1: Frequency urination with bilateral back pain, urine shows small leuko Estrace with normal RBCs and WBCs, rest of the labs are unrevealing, CT of the abdomen pelvis revealing abnormal position the IUD, the case discussed with Dr. Pulido who will see the patient tomorrow in his office for IUD removal patient has a negative test today was instructed to use different method of contraception until sees Dr. Pulido. Time: 21:22 Medical Decision Making Differential Diagnosis Differential Diagnoses: The differential diagnosis associated with the presentation includes (Colitis, diverticulitis, acute appendicitis, kidney stone, pyelonephritis, UTI, , electrolyte derangement, severe anemia.) Admission/Observation Consideration of admission/observation: Escalation of care including admission/observation considered Lab Data MDM Lab Attestation statement: I reviewed the patient's lab results. 01/23/24 19:32 01/23/24 19:32 Labs: Lab Results 01/23/24 Range/Units 19:32 WBC 7.1 (4.8-10.8) X10*3/uL RBC 4.55 (4.20-5.50) X10*6/uL Hgb 12.4 (12.0-16.0) g/dl Hct 37.2 (37.0-47.0) % MCV 81.8 (80.0-98.0) fL MCH 27.3 (27.0-33.0) pg MCHC 33.3 (31.0-35.0) g/dl RDW 12.2 (11.0-16.0) % Plt Count 299 (160-400) X10*3/uL MPV 10.5 (9.4-12.3) fL Immature Gran % (Auto) 0.3 (0.0-0.4) % Neut % (Auto) 59.9 (45-73) % Lymph % (Auto) 26.9 (20-40) % [place] % (Auto) 5.9 (2-11) % Eos % (Auto) 6.0 H (0-4) % Baso % (Auto) 1.0 (0-2) % Lymph # (Auto) 1.9 (1.2-4.9) X10*3/uL [place] # (Auto) 0.4 (0.1-1.2) X10*3/uL Eos # (Auto) 0.4 (0.0-0.4) X10*3/uL Baso # (Auto) 0.1 (0.0-0.2) X10*3/uL Abs Immat Gran (auto) 0.02 (0.00-0.03) X10*3/uL Absolute Neuts (auto) 4.3 (2.0-8.3) x10*3/uL Absolute Nucleated RBC 0.000 (0.0-0.012) X10*3/uL Nucleated RBC % (auto) 0.0 (0.0-0.2) /100WBC Sodium 140 (135-145) mmol/L Potassium 3.7 (3.3-5.1) mmol/L Chloride 108 (96-108) mmol/L Carbon Dioxide 21 L (22-29) mmol/L Anion Gap 15 (12-20) BUN 10 (9-16) mg/dL Creatinine 0.68 (0.5-1.4) mg/dL Estim Creat Clear Calc 134.2 Estimated GFR > 60 Random Glucose 95 (60-115) mg/dL Calcium 9.7 (8.4-10.2) mg/dL Total Bilirubin 0.4 (0.0-1.0) mg/dL Direct Bilirubin 0.1 (0.0-0.5) mg/dL AST 13 (5-31) U/L ALT 14 (0-31) U/L Alkaline Phosphatase 49 (39-117) U/L Total Protein 7.1 (6.5-8.0) g/dL Albumin 4.4 (3.5-5.0) g/dL Lipase 35 (8-78) U/L Urine Color Yellow Urine Appearance Clear Urine pH 8.0 (5.0-9.0) Ur Specific [place] 1.010 (1.005-1.025) Urine Protein Negative (Neg-Trace) mg/dL Urine Glucose (UA) Negative (Negative) mg/dL Urine Ketones Negative (Negative) mg/dL Urine Blood Negative (Negative) Urine Nitrite Negative (Negative) Ur Leukocyte Esterase Small (1+) H (Negative) Urine RBC 0-2 (0-2) /HPF Urine WBC 0-5 (0-5) /HPF Ur Squamous Epith Cells 0-2 (0-2) /HPF Urine Bacteria None Seen (None Seen) Hyaline Casts 0-2 (0-2) /LPF Urine Test NEGATIVE (NEGATIVE) Independent Interpretation I performed an independent interpretation of an: CT Scan (Abdomen pelvis: No acute intra-abdominal pathology.) Radiology Impression Discussion of test interpretation with radiology: I have reviewed the radiologist's reading. Discharge Plan Discharge Clinical Impression: Abdominal pain, Urinary frequency, IUD complication Patient Disposition: Home, Self-Care Instructions: Flank Pain (ED) Additional Instructions: Call Dr. Pulido 1st thing tomorrow and make an appointment with him to remove the IUD. Prescriptions: No Action albuterol sulfate [ProAir HFA] 90 mcg/actuation HFA aerosol inhaler 2 puff inhalation Q4-6H PRN (Reason: shortness of breath or wheezing) Qty: 8.5 0RF (DME) nebulizers Misc See Rx Instructions .Route Qty: 1 0RF Rx Instructions: As directed montelukast [Singulair] 10 mg tablet 10 mg PO BEDTIME Qty: 30 0RF clonazepam 1 mg tablet 0.5 mg PO BID PRN (Reason: Anxiety) dextroamphetamine-amphetamine 15 mg tablet 1 tab PO DAILY@1500 dextroamphetamine-amphetamine 30 mg capsule,extended release 24hr 1 cap PO DAILY albuterol sulfate 2.5 mg /3 mL (0.083 %) solution for nebulization 2.5 mg inhalation Q4H PRN (Reason: shortness of breath or wheezing) clonidine HCl 0.1 mg tablet 0.1 mg PO DAILY gabapentin 600 mg tablet 600 mg PO TID escitalopram oxalate 20 mg tablet 20 mg PO DAILY clonidine HCl 0.1 mg tablet 0.1 mg PO BEDTIME PRN (Reason: Insomnia) prednisone 20 mg tablet 40 mg PO DAILY Qty: 10 0RF fluticasone furoate-vilanterol [Breo Ellipta] 100-25 mcg/dose blister with device 1 inh inhalation Q24H Qty: 60 0RF Referrals: Rafita Pulido MD [Physician] - Print Language: Slovenian
--- NOTE | 2024-01-23 23:09 | PM.GYNCN ---
CLIENT SOLUTIONS SPECIALIST - CN: HPI Data of Consult Consult date: 01/23/24 Primary Care Provider: None Physician Consult Narrative Narrative: I was consulted on Enedina Colón who is a 33 year old female 3 presented to the emergency complaining of bilateral lower back pain right more than left pain radiates from right side of the back to the right groin area, symptoms started about associated with loss of appetite and decreased p.o. intake, in addition the patient is complaining of frequency urination with no dysuria or hematuria. No vaginal discharge or bleed. No fever, no chills, last bowel movement was this morning and passing flatus, never had intra-abdominal surgery. cc:: CC: OB [facility] Past Medical History Medical History Asthma Social History Social History Unable to assess alcohol history related to: Unknown Patient Tobacco Use Status: Never used Tobacco Smoked in Last 30 Days: No Use of substances other than those prescribed or required for medical reasons: No Substance Use Type: Former Substance User Advance Directives: No Advance Directives Information Provided: No Do you have a plan to hurt others: No Plan Patient : No service: No Meds Allergies Allergy/AdvReac Type Severity Reaction Status Date / Time phenazopyridine Allergy Hives Verified 01/23/24 19:11 [From Pyridium] Home Medications ?Medication ?Instructions ?Recorded ?Confirmed ?Last Taken ?Type albuterol sulfate 2.5 mg/3 mL 2.5 mg inhalation Q4H PRN 06/09/23 06/09/23 Unknown History (0.083 %) solution for nebulization shortness of breath or wheezing clonazepam 1 mg tablet 0.5 mg PO BID PRN Anxiety 06/09/23 06/09/23 Unknown History clonidine HCl 0.1 mg tablet 0.1 mg PO BEDTIME PRN Insomnia 06/09/23 06/09/23 Unknown History clonidine HCl 0.1 mg tablet 0.1 mg PO DAILY 06/09/23 06/09/23 06/09/23 History dextroamphetamine-amphetamine 15 1 tab PO DAILY@1500 06/09/23 06/09/23 06/08/23 History mg tablet dextroamphetamine-amphetamine ER 1 cap PO DAILY 06/09/23 06/09/23 06/09/23 History 30 mg 24hr capsule,extend release escitalopram oxalate 20 mg tablet 20 mg PO DAILY 06/09/23 06/09/23 06/09/23 History gabapentin 600 mg tablet 600 mg PO TID 06/09/23 06/09/23 06/09/23 History CLIENT SOLUTIONS SPECIALIST Physical Exam Vitals Vital signs: Temp Pulse Resp BP Pulse Ox O2 Del Method 98.3 F 71 16 112/58 L 98 Room Air 01/23/24 21:07 01/23/24 21:07 01/23/24 21:07 01/23/24 21:07 01/23/24 21:07 01/23/24 21:07 BMI result Body Mass Index 31.1 Additional Comments: Reported by Dr. Law as the following: Abdomen: Soft and nontender. Bowel sounds normal in all 4 quadrants. No distention noted. No organomegaly noted. No visible injury noted. Back: No CVA tenderness. Full range of motion noted. CLIENT SOLUTIONS SPECIALIST - Results Labs 01/23/24 19:32 01/23/24 19:32 Labs: Short CBC 01/23/24 Range/Units 19:32 WBC 7.1 (4.8-10.8) X10*3/uL Hgb 12.4 (12.0-16.0) g/dl Hct 37.2 (37.0-47.0) % Plt Count 299 (160-400) X10*3/uL BMP 01/23/24 19:32 Sodium 140 Potassium 3.7 Chloride 108 Carbon Dioxide 21 L BUN 10 Creatinine 0.68 Calcium 9.7 Liver Function 01/23/24 Range/Units 19:32 Total Bilirubin 0.4 (0.0-1.0) mg/dL Direct Bilirubin 0.1 (0.0-0.5) mg/dL AST 13 (5-31) U/L ALT 14 (0-31) U/L Alkaline Phosphatase 49 (39-117) U/L Albumin 4.4 (3.5-5.0) g/dL Urine 01/23/24 Range/Units 19:32 Urine Color Yellow Urine Appearance Clear Urine pH 8.0 (5.0-9.0) Ur Specific [place] 1.010 (1.005-1.025) Urine Protein Negative (Neg-Trace) mg/dL Urine Glucose (UA) Negative (Negative) mg/dL Urine Test NEGATIVE (NEGATIVE) Imaging CT scan - pelvis: Radiologist's impression: ITS Impressions Abdomen/Pelvis CT 01/23/24 21:42 IMPRESSION: Approximately 90 degree rightward rotation of the intrauterine device. The left arm of the intrauterine device is positioned within the myometrium, approximately 4 to 5 mm from the serosa. These findings are consistent with an embedded IUD device. Recommend gynecology consultation. Fleischner guidelines were followed. Assessment and Plan (1) Malpositioned IUD: Status: Acute Recommended to Dr. Law the following: Close outpatient Follow-up in the office for IUD removal, backup method for control to the. Instructions to be given to patient to come back emergency room case fever above 100.4, nausea or vomiting, persistent worsening for pain, heavy vaginal bleeding. I spent a total of 20 minutes reviewing the chart, communicating to the emergency provider and documenting medical record
[2024-01-23 23:23] VITALS: BP 109/51; PULSE 66; RESP 15; TEMP 36.8; O2SAT 96
[2024-01-23 23:34] VITALS: BP 109/51; PULSE 66; RESP 15; TEMP 36.8; O2SAT 96
== END 2024-01-24 00:43 | disposition home or self-care (01) ==
PROVIDERS: Emergency Provider Emergency Medicine
DX: R35.0 Frequency of micturition (principal); R10.2 Pelvic and perineal pain; T83.89XA Other specified complication of genitourinary prosthetic devices, implants and grafts, initial encounter; Y76.8 Miscellaneous obstetric and gynecological devices associated with adverse incidents, not elsewhere classified; Y92.89 Other specified places as the place of occurrence of the external cause; Z79.899 Other long term (current) drug therapy
CPT/HCPCS: 36415; 74176; 80048; 80076; 81001; 81025; 83690; 85025; 87086; 99284

== ENCOUNTER → 2024-01-23 21:02 | Outpatient (BNV) | payer OTHER, SELFPAY | PROVIDERS: Emergency Provider Emergency Medicine; Visit Provider Obstetrics & Gynecology | DX: T83.32XA Displacement of intrauterine contraceptive device, initial encounter (principal) | CPT/HCPCS: 99283 ==

== ENCOUNTER 2024-01-24 10:31 | Outpatient (AMB) | payer OTHER, SELFPAY ==
[2024-01-24 10:40] VITALS: BP 108/60; BMI 31.1
--- NOTE | 2024-01-24 10:40 | A.OFFVIS_ITS ---
Vital Signs 01/24/24 10:40 Height 5 ft 7 in Weight 198 lb 6.656 oz BMI 31.1 BP 108/60 Intake Visit Reasons: IUD removal Cp Bleacher Operator Required: No Information Interpreted: non-clinical & clinical Leaflet Or Newspaper Deliverer: Leaflet Or Newspaper Deliverer Present (Cate GALEAS) Accompanied by: Self / Same As Patient Allergies phenazopyridine [From Pyridium] Allergy (Verified 01/24/24 10:44) Hives HPI Comments Details: Presenting for emergency room follow-up appointment. The patient went to the ER with history of back pain CT scan showed malpositioned IUD. The patient is complaining of vaginal discharge associated with vulvovaginal itching and malodor [facility] Medical History Asthma Social History Unable to assess alcohol history related to: Unknown Patient Tobacco Use Status: Never used Tobacco Substance Use Type: Former Substance User service: No Review of Systems Const All systems reviewed & are unremarkable except as noted in HPI and below Physical Exam Vital Signs: Last Vital Signs BP 108/60 01/24/24 10:40 BMI result Body Mass Index 31.1 General: Yes no CVA tenderness External Female Exam: normal external appearance and normal appearance of the urethra Speculum Exam - Vagina: normal appearance of the vagina, normal palpation, no lesions and no masses Speculum Exam - Cervix: normal appearance of the cervix, normal palpation, no lesions, no masses and nontender Bimanual exam- vagina & uterus: normal bimanual exam, normal palpation, uterine size normal, normal palpation, uterine shape normal, No Cervical tenderness present and non-tender Bimanual Exam- Adnexa, other: normal adnexae Back/Spine/Pelvis Back: no CVA tenderness Office Procedures IUD Insert/Removal Details Details: Counseling/Consent: After discussing with the patient the risks of the procedure including bleeding, infection, scar tissue formation, , possible injury to blood vessels or nerves, chronic arm pain, blood transfusion, and irregular unpredictable bleeding Alternative options were discussed with the patient including but not limited: Do nothing. The patient signed the consent and agreed with the plan; all questions answered. Urine test was done in the office and was negative Preop dx: Requesting IUD removal Op: IUD removal Post op dx: same EBL= 10 cc Procedure: The patient was put in the dorsal lithotomy position a speculum was inserted in the vagina the IUD thread identified. Using a Shyann clamp the thread was grasped and the IUD pulled out with no complications. The patient tolerated the procedure well and was advised to use a different method for contraception. Discharge instructions: Instructions were given to the patient to use a backup method for control since IUD was removed and to to call if temp>100.4, abdominal pain heavy vaginal bleeding, n/v occur. The patient verbalized understanding and all questions answered. This note was generated with a voice recognition program. Some errors may have been overlooked during the review of this note. Sometimes these errors may affect the content or meaning of a given sentence. 23067-YXL Removal Procedure code (CPT) selection complete Results AMB Test Urine AMB Test Urine Negative Last Edit by Cate Pittman CMA on 10:52 Results Reviewed Results Reviewed: Laboratory Last Values Tst Clinic Negative 01/24/24 10:51 Assessment & Plan Assessment & Plan (1) Malpositioned IUD: Code(s): T83.32XA - Displacement of intrauterine contraceptive device, initial encounter Category: Medical Plan: Discussed with the patient the results of the CT scan, recommended IUD removal. IUD removed, see procedure note (2) Vaginitis: Code(s): N76.0 - Acute vaginitis Category: Medical Plan: GC/CT, Bacterial Vaginosis panel taken, Terazol 0.8% q.h.s. for 3 days was sent to the patient's pharmacy. will screen for STI, HepBs Ag, HIV, RPR, Hep C Ab ordered. Will treat with Flagyl 500 mg p.o. b.i.d. x 7 days, Instructions given to the patient to refrain from sexual activity or to use condoms consistently and correctly during the BV treatment regimen, not to douch, it might increase the risk for relapse, and to call if symptoms persist or recur. (3) Family planning: Code(s): Z30.09 - Encounter for other general counseling and advice on contraception Category: Social Hx Plan: Discussed with the patient the different options of control including control pills/Nuvaring, DMPA, different types of IUD ?s ( cu vs progesterone) , sterilization. All the pros, cons, risks and benefits of each were discussed with the patient. The patient decided to think about it and get back to us as soon as possible. Instructions given the patient to use a backup method for control to lower the chance of getting . All questions answered, the patient verbalized understanding Orders: Orders AMB HCG Urine Test Today Z32.02 - Encounter for test, result negative CT NG by PCR Today T83.9XXA - Unspecified complication of genitourinary prosthetic device, implant and graft, initial encounter Bacterial Vaginosis Panel Today T83.9XXA - Unspecified complication of genitourinary prosthetic device, implant and graft, initial encounter Hepatitis C Antibody Today B96.89 - Other specified bacterial agents as the cause of diseases classified elsewhere, N76.0 - Acute vaginitis HIV Ab/Ag Today B96.89 - Other specified bacterial agents as the cause of diseases classified elsewhere, N76.0 - Acute vaginitis Syphilis Screen Today B96.89 - Other specified bacterial agents as the cause of diseases classified elsewhere, N76.0 - Acute vaginitis Hepatitis B Surface Antigen Today B96.89 - Other specified bacterial agents as the cause of diseases classified elsewhere, N76.0 - Acute vaginitis Medications: New metronidazole 500 mg PO BID 7 days 14 tabs 0RF terconazole 0.8% 1 appful vaginal BEDTIME 3 days 20 grams 0RF Coding Level of Care Code Est Pt Level 3 (97995) Procedure Only Diagnoses Malpositioned IUD T83.32XA Vaginitis N76.0 Family planning Z30.09 CPT Codes Details - CPT: 30888-LUH Removal ([id number])
== END 2024-01-24 11:31 | disposition home or self-care (01) ==
LOC: HO.HWS 10:31
PROVIDERS: Visit Provider Obstetrics & Gynecology
DX: T83.32XA Displacement of intrauterine contraceptive device, initial encounter (principal); N76.0 Acute vaginitis; Z30.09 Encounter for other general counseling and advice on contraception; Z32.02 Encounter for pregnancy test, result negative; Z30.432 Encounter for removal of intrauterine contraceptive device
CPT/HCPCS: 58301; 99213

== ENCOUNTER 2024-01-24 10:31 | Outpatient (REF) | payer OTHER, SELFPAY ==
[2024-01-25 11:59] LABS: CT PCR NOT DETECTED (Not Detect.); NG PCR NOT DETECTED (Not Detect.)
[2024-01-25 13:31] LABS: Bacterial Vaginosis PCR POSITIVE (Negative); Candida Group PCR NOT DETECTED (Not Detect); Candida glab krusei PCR NOT DETECTED (Not Detect); Trichomonas vaginalis PCR NOT DETECTED (Not Detect)
== END 2024-01-24 10:32 | disposition home or self-care (01) ==
LOC: HO.LNP 10:31
PROVIDERS: Visit Provider Obstetrics & Gynecology
DX: T83.9XXA Unspecified complication of genitourinary prosthetic device, implant and graft, initial encounter (principal); N76.0 Acute vaginitis
CPT/HCPCS: 0352U; 58301; 81025; 87491; 87591; 99212

== ENCOUNTER 2024-02-29 13:25 | Outpatient (AMB) | payer OTHER, SELFPAY ==
[2024-02-29 13:26] VITALS: BP 120/74; BMI 31.1
--- NOTE | 2024-02-29 13:26 | MHC.OFFVIS ---
Vital Signs 02/29/24 13:26 Height 5 ft 7 in Weight 198 lb 6.656 oz BMI 31.1 BP 120/74 Intake Visit Reasons: 3 week follow up iud removal check Allergies phenazopyridine [From Pyridium] Allergy (Verified 01/24/24 10:44) Hives HPI Comments Details: The patient is presenting for a 3 week follow-up post Mirena IUD removal still complaining of multiple psychiatric symptoms without any improvement after Mirena IUD removal. No suicidal thoughts. The patient is not under the care of psychiatrist and is having difficulties with access to care [facility] Medical History Asthma Social History Unable to assess alcohol history related to: Unknown Patient Tobacco Use Status: Never used Tobacco Substance Use Type: Former Substance User service: No Review of Systems Const All systems reviewed & are unremarkable except as noted in HPI and below Reports as per HPI and Reports no additional complaints GI Reports no additional complaints Reports no additional complaints Assessment & Plan Assessment & Plan (1) Mood disorder: Code(s): F39 - Unspecified mood [affective] disorder Category: Medical Plan: Will refer to Psychiatry outpatient consultation services (2) Family planning: Code(s): Z30.09 - Encounter for other general counseling and advice on contraception Category: Social Hx Plan: Discussed with the patient the different options of control including control pills/Nuvaring, DMPA, different types of IUD ?s, sterilization. All the pros, cons, risks and benefits of each were discussed with the patient. Recommended the patient ParaGard IUD so a more detailed discussion was carried on including types (Progesterone, Copper), mechanism of action, risks (infection, uterine perforation, failure with ectopic , septic AB, dysmenorrhea with Paraguard, others) benefits (efficient contraceptive method, hypo menorrhea with Progesterone IUD, others) the patient will like to think about it and get back to me as soon as possible. Instructions given the patient to use condoms consistently to decrease the risk of . All questions answered, the patient verbalized understanding Orders: Referrals Psychiatry Outpatient Consultation Service F39 - Unspecified mood [affective] disorder Coding Level of Care Code Est Pt Level 3 (47852) Diagnoses Mood disorder F39 Family planning Z30.09
== END 2024-02-29 14:17 | disposition home or self-care (01) ==
LOC: HO.HWS 13:25
PROVIDERS: Visit Provider Obstetrics & Gynecology
DX: F39 Unspecified mood [affective] disorder (principal); Z30.09 Encounter for other general counseling and advice on contraception
CPT/HCPCS: 99213

== ENCOUNTER → 2024-02-29 13:25 | Outpatient (BNVA) | payer OTHER, SELFPAY | PROVIDERS: Visit Provider Obstetrics & Gynecology | DX: Z30.09 Encounter for other general counseling and advice on contraception (principal); F09 Unspecified mental disorder due to known physiological condition | CPT/HCPCS: 99212 ==

== ENCOUNTER 2024-11-22 10:43 | Emergency (ER) | payer OTHER, SELFPAY ==
--- NOTE | ~2024-11-22 | CT_ITS ---
EXAMINATION: CT ABDOMEN AND PELVIS WITHOUT CONTRAST CLINICAL INFORMATION: Right flank pain with urinary symptoms, rule out obstructing calculus. COMPARISON: 07/25/2023. TECHNIQUE: Multidetector volumetric imaging was performed from the superior aspect of the liver through the pubic symphysis. Sagittal and coronal reformatted images were obtained on the technologist's workstation. This CT examination was performed using dose optimization techniques as appropriate, variously including the following: *Automated exposure control *Adjustment of mA and/or kV according to patient size (this includes techniques or standardized protocols for targeted exams where dose is matched to indication/reason for exam; i.e. extremities or head) *Use of iterative reconstruction technique FINDINGS: LUNG BASES: The visualized lung bases are unremarkable. LIVER, GALLBLADDER, AND BILIARY TREE: The unenhanced liver is normal in size, shape, and attenuation. No focal hepatic lesion or biliary ductal dilatation is present. The gallbladder demonstrates no evidence of radiopaque gallstones, gallbladder wall thickening, or obvious pericholecystic inflammatory changes. Mildly hyperattenuating layering possible sludge is present. PANCREAS: Unremarkable. SPLEEN: Borderline splenic enlargement. ADRENAL GLANDS: Unremarkable. KIDNEYS AND URETERS: The kidneys are normal in size, shape, and attenuation. No hydronephrosis, hydroureter, or calculi seen. No perinephric stranding. BLADDER: Unremarkable. GASTROINTESTINAL TRACT: The small and large bowel are unremarkable. The appendix is unremarkable. ABDOMINAL WALL: No significant hernia is appreciated. LYMPH NODES: Normal. VASCULAR: Unremarkable. PELVIC VISCERA: The uterus and adnexa are unremarkable. Trace free pelvic fluid, likely physiologic. Previously seen IUD is no longer present. OSSEOUS STRUCTURES: No suspicious lytic or blastic bone lesions. Normal appearance. Bone island in the right iliac bone. CT/CT abdomen pelvis wo IV con IMPRESSION: 1. No acute findings in the abdomen or pelvis. No obstructive uropathy or calculus. 2. Mild layering hyperdensity in the gallbladder, possible sludge. No calcified stones or inflammation seen. Electronically signed by: Shankar Hein MD 11/22/2024 03:42 PM EDT
[2024-11-22 10:56] VITALS: BP 124/75; PULSE 102; RESP 18; TEMP 36.9; O2SAT 98; BMI 24.0
--- NOTE | 2024-11-22 10:57 | ED_ITS ---
HPI - General Adult General Chief complaint: Abdominal Pain Stated complaint: R side/back pain Time Seen by Provider: 11/22/24 11:31 Source: patient Mode of arrival: ambulatory Limitations: no limitations History of Present Illness ED Provider: Mak Chairez PA-C HPI narrative: 34-year-old female with medical history of asthma, herniated disc, presents to the emergency department for 1 week of right-sided flank pain radiating into the right groin. She states that 2 days ago she started experiencing chills, nausea, vomiting, diarrhea. She states these symptoms are also accompanied with dysuria, urinary frequency. She reports this feels similar to past UTI. Additionally she states that she was started on lamotrigine approximately a month ago and experienced a drug eruption rash and discontinued this medication about 2 weeks ago but is worried her urinary symptoms may be due to the lamotrigine. Denies chest pain, shortness of breath, fever, blood in the urine, black or tarry stools. Onset (ago): week(s) (1) Location: right ( right flank) Radiation: abdomen ( right flank pain radiating into right lower groin) Severity: moderate Quality: burning, stabbing and aching Pain Consistency: constant Relieving factors: none Exacerbating factors: none Associated symptoms: denies other symptoms Treatments prior to arrival: none Related Data Home Medications ?Medication ?Instructions ?Recorded ?Confirmed albuterol sulfate 2.5 mg/3 mL 2.5 mg inhalation Q4H PRN 06/09/23 06/09/23 (0.083 %) solution for nebulization shortness of breath or wheezing clonazepam 1 mg tablet 0.5 mg PO BID PRN Anxiety 06/09/23 06/09/23 clonidine HCl 0.1 mg tablet 0.1 mg PO BEDTIME PRN Insomnia 06/09/23 06/09/23 clonidine HCl 0.1 mg tablet 0.1 mg PO DAILY 06/09/23 06/09/23 dextroamphetamine-amphetamine 15 1 tab PO DAILY@1500 06/09/23 06/09/23 mg tablet dextroamphetamine-amphetamine ER 1 cap PO DAILY 06/09/23 06/09/23 30 mg 24hr capsule,extend release escitalopram oxalate 20 mg tablet 20 mg PO DAILY 06/09/23 06/09/23 gabapentin 600 mg tablet 600 mg PO TID 06/09/23 06/09/23 Previous Rx's ?Medication ?Instructions ?Recorded albuterol sulfate 90 mcg/actuation 2 puff inhalation Q4-6H PRN 04/28/23 aerosol inhaler (ProAir HFA) shortness of breath or wheezing #8.5 grams montelukast 10 mg tablet 10 mg PO BEDTIME #30 tabs 05/18/23 (Singulair) nebulizers #1 ea 05/18/23 fluticasone furoate 100 1 inh inhalation Q24H #60 ea 06/10/23 mcg-vilanterol 25 mcg/dose inhalation powder (Breo Ellipta) metronidazole 500 mg tablet 500 mg PO BID 7 days #14 tabs 01/24/24 terconazole 0.8 % vaginal cream 1 appful vaginal BEDTIME 3 days 01/24/24 #20 grams Allergies Allergy/AdvReac Type Severity Reaction Status Date / Time phenazopyridine Allergy Hives Verified 11/22/24 10:59 [From Pyridium] Review of Systems 2 Review of Systems: CONST: Negative for fever, body aches and chills. HENT: Negative for neck pain/stiffness, headache, congestion, sore throat, swelling. EYES: Negative for discharge/pain or vision changes. RESP: Negative for cough/hemoptysis and shortness of breath. CV: Negative chest pain, difficulty breathing, palpitations. ABD: POS R flank, abdominal/groin pain, nausea, vomiting. : Negative increase frequency, dysuria, blood in urine or stool. MUSC: Negative for muscle aches, edema. SKIN: Negative rash, lesions/sores. NEURO: Negative headache, dizziness, weakness. Yes all other systems are reviewed and are negative [facility]LY [facility], [facility] Past Medical History Attestation statement: The following information was validated with the patient. Source: old records reviewed and nursing notes reviewed Medical History Asthma Social History Social History Unable to assess alcohol history related to: Unknown Patient Tobacco Use Status: Never used Tobacco Substance Use Type: Former Substance User Advance Directives: No Advance Directives Information Provided: Yes service: No Physical Exam ED Vital Signs: Vital Signs - 24 hr 11/22/24 10:56 11/22/24 15:25 Temperature 98.5 F 98.2 F Pulse Rate 102 H 88 Respiratory Rate 18 16 Blood Pressure 124/75 121/67 Pulse Oximetry 98 100 Oxygen Delivery Method Room Air Room Air BMI result Body Mass Index 24.0 Const General: cooperative, healthy appearing, comfortable and no acute distress Nutritional Appearance: average body habitus Orientation/consciousness: patient oriented x3 Limitations: no limitations HENMT Head: Yes normal to inspection and Yes normocephalic Eyes General: appearance normal, both eyes and all related structures Pupils: Equal, round and reactive pupils present EOM: EOMs intact bilaterally Neck Neck: Yes normal visual inspection Chest Chest palpation & inspection: normal inspection of the chest Resp Effort & Inspection: normal respiratory effort and able to speak in complete sentences Auscultation: clear to auscultation bilaterally, no crackles, no rales, no rhonchi, no wheezes, breath sounds present and lung sounds not diminished Cardio Jugular venous distension: no JVD Rate: tachycardic Rhythm: regular rhythm Heart sounds: S1 normal heart sound present and S2 normal heart sound present GI Inspection: Yes normal to inspection General: Yes CVA tenderness ( right) on the right Back/Spine/Pelvis Back: CVA tenderness ( right) Neuro General: patient oriented x3 Cranial nerves: Yes Equal, round and reactive pupils present Course Course Course Narrative: This is a rapid medical exam performed by Octavia Birch NP: Additional HPI, ROS, PE not included below will be deferred to primary provider. Patient is a 34-year-old female with history of asthma, mood disorder presenting with complaint of urinary urgency, urinating small amounts, urine dark in color, lower back pain. Reports history of pyelonephritis. Sxs x several days. Associated nausea, vomiting and diarrhea for the past 40 hours. Plan: UA, labs, viral panel Medical Decision Making Medical Decision Making MDM Narrative: 34-year-old female with medical history of asthma, herniated disc, presents to the emergency department for 1 week of right-sided flank pain radiating into the right groin. She states that 2 days ago she started experiencing chills, nausea, vomiting, diarrhea. She states these symptoms are also accompanied with dysuria, urinary frequency. VSS mildly tachycardic at 102 BPM, nontoxic appearing, in no acute distress. On physical exam there is right-sided CVA TTP. Abdomen is soft, non-tender, negative Ennis's sign, no rebound tenderness, no guarding, no peritoneal signs. Labs unremarkable. Awaiting UA, will perform bedside echo to evaluate for renal calculi, hydronephrosis. Course 16:42- CT abdomen and pelvis did not find any obstructive uropathy or calculus. UA reveals 2+ leukocyte x-rays, negative urine nitrites, with 6-10 squamous epithelial cells, and calcium oxalate crystals present in the urine sample. I suspect this is what has been causing the right-sided flank pain, and patient passed the stone while in the department. Patient was counseled to follow up with her PCP. Differential Diagnosis Differential Diagnoses: The differential diagnosis associated with the presentation includes Renal calculi Hydronephrosis Pyelonephritis UTI Admission/Observation Consideration of admission/observation: Escalation of care including admission/observation considered Lab Data MDM Lab Attestation statement: I reviewed the patient's lab results. 11/22/24 11:11 11/22/24 11:11 Labs: Lab Results 11/22/24 11/22/24 Range/Units 11:11 15:16 WBC 5.3 (4.8-10.8) X10*3/uL RBC 5.29 (4.20-5.50) X10*6/uL Hgb 14.0 (12.0-16.0) g/dl Hct 41.8 (37.0-47.0) % MCV 79.0 L (80.0-98.0) fL MCH 26.5 L (27.0-33.0) pg MCHC 33.5 (31.0-35.0) g/dl RDW 12.5 (11.0-16.0) % Plt Count 320 (160-400) X10*3/uL MPV 10.6 (9.4-12.3) fL Immature Gran % (Auto) 0.2 (0.0-0.4) % Neut % (Auto) 68.2 (45-73) % Lymph % (Auto) 17.7 L (20-40) % Will % (Auto) 6.5 (2-11) % Eos % (Auto) 7.0 H (0-4) % Baso % (Auto) 0.4 (0-2) % Lymph # (Auto) 0.9 L (1.2-4.9) X10*3/uL Will # (Auto) 0.3 (0.1-1.2) X10*3/uL Eos # (Auto) 0.4 (0.0-0.4) X10*3/uL Baso # (Auto) 0.0 (0.0-0.2) X10*3/uL Abs Immat Gran (auto) 0.01 (0.00-0.03) X10*3/uL Absolute Neuts (auto) 3.6 (2.0-8.3) x10*3/uL Absolute Nucleated RBC 0.000 (0.0-0.012) X10*3/uL Nucleated RBC % (auto) 0.0 (0.0-0.2) /100WBC Sodium 139 (135-145) mmol/L Potassium 3.8 (3.3-5.1) mmol/L Chloride 104 (96-108) mmol/L Carbon Dioxide 26 (22-29) mmol/L Anion Gap 13 (12-20) BUN 10 (9-16) mg/dL Creatinine 0.62 (0.5-1.4) mg/dL Estim Creat Clear Calc 123.1 Estimated GFR > 60 Random Glucose 85 (60-115) mg/dL Calcium 9.6 (8.4-10.2) mg/dL Magnesium 1.9 (1.6-2.6) mg/dL Total Bilirubin 0.5 (0.0-1.0) mg/dL AST 17 (5-31) U/L ALT 15 (0-31) U/L Alkaline Phosphatase 61 (39-117) U/L Total Protein 7.5 (6.5-8.0) g/dL Albumin 4.7 (3.5-5.0) g/dL Beta HCG, Quant < 2 mIU/mL Urine Color Dark Yellow Urine Appearance Cloudy Urine pH 6.0 (5.0-9.0) Ur Specific [place] 1.025 (1.005-1.025) Urine Protein Trace (Neg-Trace) mg/dL Urine Glucose (UA) Negative (Negative) mg/dL Urine Ketones Trace (Negative) mg/dL Urine Blood Negative (Negative) Urine Nitrite Negative (Negative) Ur Leukocyte Esterase Moderate (2+) H (Negative) Urine RBC 0-2 (0-2) /HPF Urine WBC 0-5 (0-5) /HPF Ur Squamous Epith Cells 6-10 (0-2) /HPF Calcium Oxalate Crystal Present Urine Bacteria 3+ (None Seen) Hyaline Casts 0-2 (0-2) /LPF Influenza Type A (PCR) NEGATIVE (Negative) Influenza Type B (PCR) NEGATIVE (Negative) RSV RNA Qual (PCR) NEGATIVE (Negative) SARS-CoV-2 RNA (RT-PCR) NEGATIVE (Negative) Independent Interpretation I performed an independent interpretation of an: CT Scan Radiology Impression Discussion of test interpretation with radiology: I have reviewed the radiologist's reading. Radiologist Impression: TECHNIQUE: Multidetector volumetric imaging was performed from the superior aspect of the liver through the pubic symphysis. Sagittal and coronal reformatted images were obtained on the technologist's workstation. This CT examination was performed using dose optimization techniques as appropriate, variously including the following: *Automated exposure control *Adjustment of mA and/or kV according to patient size (this includes techniques or standardized protocols for targeted exams where dose is matched to indication/reason for exam; i.e. extremities or head) *Use of iterative reconstruction technique FINDINGS: LUNG BASES: The visualized lung bases are unremarkable. LIVER, GALLBLADDER, AND BILIARY TREE: The unenhanced liver is normal in size, shape, and attenuation. No focal hepatic lesion or biliary ductal dilatation is present. The gallbladder demonstrates no evidence of radiopaque gallstones, gallbladder wall thickening, or obvious pericholecystic inflammatory changes. Mildly hyperattenuating layering possible sludge is present. PANCREAS: Unremarkable. SPLEEN: Borderline splenic enlargement. ADRENAL GLANDS: Unremarkable. KIDNEYS AND URETERS: The kidneys are normal in size, shape, and attenuation. No hydronephrosis, hydroureter, or calculi seen. No perinephric stranding. BLADDER: Unremarkable. GASTROINTESTINAL TRACT: The small and large bowel are unremarkable. The appendix is unremarkable. ABDOMINAL WALL: No significant hernia is appreciated. LYMPH NODES: Normal. VASCULAR: Unremarkable. PELVIC VISCERA: The uterus and adnexa are unremarkable. Trace free pelvic fluid, likely physiologic. Previously seen IUD is no longer present. OSSEOUS STRUCTURES: No suspicious lytic or blastic bone lesions. Normal appearance. Bone island in the right iliac bone. CT/CT abdomen pelvis wo IV con IMPRESSION: 1. No acute findings in the abdomen or pelvis. No obstructive uropathy or calculus. 2. Mild layering hyperdensity in the gallbladder, possible sludge. No calcified stones or inflammation seen. Electronically signed by: Shankar Hein MD 11/22/2024 03:42 PM EDT RP External Record Review External record reviewed: Inpatient record, Office record and Outpatient record Discharge Plan Discharge Clinical Impression: Calcium oxalate crystals present in urine Patient Disposition: Home, Self-Care Additional Instructions: You were evaluated in the emergency department today for right lower back pain radiating into the groin. Your lab work was unremarkable. Your imaging included a CT scan of your abdomen and pelvis looking for possible kidney stones did not reveal any obstructing stones in the kidney, Or retained urine in the kidney. Your urine test was negative for infection however did have calcium oxalate crystals present. This is most likely what was causing her lower back pain as the stone was traveling out of your kidney and through your ureter where you excreted it into the urine. Make sure to stay hydrated with plenty of water as liquids like soda or tea and coffee can cause recurrent stones. Follow-up with your PCP to ensure improvement. Please return to the emergency department if you experience fevers over 100.4?, blood in the urine, worsening back or abdominal pain, blood in the vomit, or any new or concerning symptoms. Prescriptions: No Action albuterol sulfate [ProAir HFA] 90 mcg/actuation HFA aerosol inhaler 2 puff inhalation Q4-6H PRN (Reason: shortness of breath or wheezing) Qty: 8.5 0RF (DME) nebulizers Misc See Rx Instructions .Route Qty: 1 0RF Rx Instructions: As directed montelukast [Singulair] 10 mg tablet 10 mg PO BEDTIME Qty: 30 0RF clonazepam 1 mg tablet 0.5 mg PO BID PRN (Reason: Anxiety) dextroamphetamine-amphetamine 15 mg tablet 1 tab PO DAILY@1500 dextroamphetamine-amphetamine 30 mg capsule,extended release 24hr 1 cap PO DAILY albuterol sulfate 2.5 mg /3 mL (0.083 %) solution for nebulization 2.5 mg inhalation Q4H PRN (Reason: shortness of breath or wheezing) clonidine HCl 0.1 mg tablet 0.1 mg PO DAILY gabapentin 600 mg tablet 600 mg PO TID escitalopram oxalate 20 mg tablet 20 mg PO DAILY clonidine HCl 0.1 mg tablet 0.1 mg PO BEDTIME PRN (Reason: Insomnia) fluticasone furoate-vilanterol [Breo Ellipta] 100-25 mcg/dose blister with device 1 inh inhalation Q24H Qty: 60 0RF metronidazole 500 mg tablet 500 mg PO BID 7 Days Qty: 14 0RF terconazole 0.8 % cream 1 appful vaginal BEDTIME 3 Days Qty: 20 0RF Print Language: [place]an
[2024-11-22 11:15] LABS: MANUAL DIFF FLAG NO
[2024-11-22 11:27] LABS: Basophils Percent Auto 0.4 % (0-2); Eosinophils Absolute Auto 0.4 X10*3/uL (0.0-0.4); Hematocrit 41.8 % (37.0-47.0); Imm Gran Abs Auto 0.01 X10*3/uL (0.00-0.03); Imm Gran Pct Auto 0.2 % (0.0-0.4); Lymphocytes Absolute Auto 0.9 X10*3/uL (1.2-4.9); Lymphocytes Percent Auto 17.7 % (20-40); Mean Corpuscular HGB Conc 33.5 g/dl (31.0-35.0); Mean Corpuscular Hemoglobin 26.5 pg (27.0-33.0); Mean Platelet Volume 10.6 fL (9.4-12.3); Monocytes Absolute Auto 0.3 X10*3/uL (0.1-1.2); Monocytes Percent Auto 6.5 % (2-11); Neutrophils Absolute Auto 3.6 x10*3/uL (2.0-8.3); Neutrophils Percent Auto 68.2 % (45-73); Platelet Count 320 X10*3/uL (160-400); Red Blood Count 5.29 X10*6/uL (4.20-5.50); Red Cell Distribution Width 12.5 % (11.0-16.0); White Blood Count 5.3 X10*3/uL (4.8-10.8)
[2024-11-22 11:36] LABS: Alanine Aminotransferase 15 U/L (0-31); Albumin Level 4.7 g/dL (3.5-5.0); Alkaline Phosphatase 61 U/L (39-117); Anion Gap 13 (12-20); Aspartate Amino Transferase 17 U/L (5-31); Bilirubin Total 0.5 mg/dL (0.0-1.0); Blood Urea Nitrogen 10 mg/dL (9-16); Calcium 9.6 mg/dL (8.4-10.2); Carbon Dioxide 26 mmol/L (22-29); Chloride 104 mmol/L (96-108); Creatinine Clr Calc Pharmacy 123.1; Estimated Glomerular Filt Rate > 60; Glucose Random 85 mg/dL (60-115); Magnesium 1.9 mg/dL (1.6-2.6); Potassium 3.8 mmol/L (3.3-5.1); Sodium 139 mmol/L (135-145); Total Protein 7.5 g/dL (6.5-8.0)
[2024-11-22 11:38] LABS: HCG Quantitative < 2 mIU/mL
[2024-11-22 12:02] LABS: Influenza A PCR NEGATIVE (Negative); Influenza B PCR NEGATIVE (Negative); Resp Syncy Virus RNA Qual PCR NEGATIVE (Negative); SARS COV2 PCR INHOUSE NEGATIVE (Negative)
--- OUTSIDE RECORDS SUMMARY | 2024-11-22 12:20 | XMS_ITS | Clinical Summary ---
Author Organization [facility] it Address [address] [place] [address] Care Team Providers Care Senior Quality Assurance Specialist Name Role Phone Shana Markham MD Primary Care Provider Unavailab le Surgical History Surgery Date Site/Laterality Comments OTHER SURGICAL HISTORY PROCEDURE: DENIES PREVIOUS SURGERY Medical History Medical History Date Comments Suboxone maintenance treatme nt complicating , antepartum, third trimester (CMS/HCC V24, CMS/HCC V28) DX:Suboxone maintenance tereza tment complicating , antepartum, third trimester ([facility]) Mild intermittent asthma, uncomplicated DX:Mild intermittent asthma, uncomplicated Family History Relation Name Status Comments Brother 1 Alive Brother 2 Alive Father Alive Maternal Grandfather Alive Maternal Grandmother emphyse ma Mother Alive Paternal Grandfather Alive Paternal Grandmother Alive Social History Tobacco Use Types Packs/Day Years Used Date Smoking Tobacco: Every Day Cigarettes Smokeless Tobacco: Never Alcohol Use Standard Drinks/Week Comments No 0 (1 standard drink = 0.6 oz pur e alcohol) Comments Unknown Sex and Gender Information Value Date Recorded Sex Assigned at Not on file Legal Sex Female 6:53 PM EST Gender Identity Not on file Sexual Orientation Not on file Obstetrics History Plan of Treatment Health Maintenance Due Date Last Done Comments DTaP,Tdap,and Td Vaccines (1 - Tdap) 2008 Hepatitis B Vaccines (1 of 3 - 19+ 3-dose series) 2008 Pneumococcal Vaccine: Pediat rics (0 to 5 Years) and At-Risk Patients (6 to 64 Years) (1 of 2 - PCV) 2008 Cervical Cancer Screening: P ap Smear 2010 Depression Screening 06/05/2022 HIV Screening 06/05/2022 Hepatitis C Screening 06/05/2022 Social Influencers of Health Screening 06/05/2022 COVID-19 Vaccine ( - 2023-2 5 season) 2024 Influenza Vaccine (Season Ended) 2025 HIB Vaccines Aged Out No longer eligi ble based on patient's age to complete this topic HPV Vaccines Aged Out No longer eligi ble based on patient's age to complete this topic Hepatitis A Vaccines Aged Out No long er eligible based on patient's age to complete this topic IPV Vaccines Aged Out No longer eligi ble based on patient's age to complete this topic MMR Vaccines Aged Out No longer eligi ble based on patient's age to complete this topic Meningococcal ACWY Vaccine Aged Out N o longer eligible based on patient's age to complete this topic Meningococcal B Vaccine Aged Out No l onger eligible based on patient's age to complete this topic RSV Immunization Patients Un baylee 20 months Aged Out No longer eligible b ased on patient's age to complete this topic Varicella Vaccines Aged Out No longer eligible based on patient's age to complete this topic Care Teams Senior Quality Assurance Specialist Relationship Specialty Start Date End Date Shana Markham MD PCP - General 11/21/06
[2024-11-22 15:25] VITALS: BP 121/67; PULSE 88; RESP 16; TEMP 36.8; O2SAT 100
[2024-11-22 15:26] LABS: Appearance Urine Cloudy; Color Urine Dark Yellow; Glucose Urine UA Negative (Negative); Leukocyte Esterase Urine Moderate (2+) (Negative); Nitrite Urine Negative (Negative); Specific Gravity - Urine 1.025 (1.005-1.025); UMIC TRIGGER UACC YES; Urine Blood Negative (Negative); Urine Ketones Trace mg/dL (Negative); Urine Protein Trace mg/dL (Neg-Trace)
[2024-11-22 15:50] LABS: Bacteria Urine 3+ (None Seen); Calcium Oxalate Crystals Urine Present; Hyaline Casts Urine 0-2 /LPF (0-2); RBC Urine 0-2 /HPF (0-2); UACC Culture Trigger YES; WBC Urine 0-5 /HPF (0-5)
[2024-11-22 16:58] VITALS: BP 125/63; PULSE 79; RESP 16; TEMP 36.9; O2SAT 100
[2024-11-22 17:03] VITALS: BP 125/63; PULSE 79; RESP 16; TEMP 36.9; O2SAT 100
== END 2024-11-22 17:05 | disposition home or self-care (01) ==
PROVIDERS: Registered Nurse Emergency; Emergency Provider Emergency Medicine
DX: R10.31 Right lower quadrant pain (principal); N20.9 Urinary calculus, unspecified; J45.909 Unspecified asthma, uncomplicated; Z03.818 Encounter for observation for suspected exposure to other biological agents ruled out
CPT/HCPCS: 0241U; 74176; 80053; 81001; 83735; 84702; 85025; 87086; 87088; 99283; 99284

== ENCOUNTER → 2024-11-22 12:31 | Outpatient (BNV) | payer OTHER, SELFPAY | PROVIDERS: Emergency Provider Emergency Medicine; Visit Provider Radiology Diagnostic Radiology | DX: R10.9 Unspecified abdominal pain (principal) | CPT/HCPCS: 74176 ==